=== PATIENT | male | born 1960 | race Caucasian/White ===

== ENCOUNTER 2017-08-14 18:06 | Inpatient (IN) | payer OTHER ==
[2017-08-14 18:55] VITALS: BMI 30.7
--- NOTE | 2017-08-14 21:56 | HP ---
CIWA Score - CIWA Score Nausea/Vomitin (3x today) Muscle Tremors: 1-None Visible, but Imnaha Anxiety: 3 Agitation: 2 Paroxysmal Sweats: 1-Minimal Palms Moist Orientation: 0-Oriented Tacttile Disturbances: 0-None Auditory Disturbances: 0-None Visual Disturbances: 2-Mild Sensitivity Headache: 0-None Present CIWA-Ar Total Score: 12 Admission ROS S - HPI Chief Complaint: withdrawal symptoms Allergies/Adverse Reactions: Allergies Allergy/AdvReac Type Severity Reaction Status Date / Time Fish Containing Products Allergy Severe Rash Verified 03/13/15 16:08 penicillin G Allergy Severe Rash Verified 03/13/15 16:08 History of Present Illness: 57 yo male with hx of nicotine, crack / cocaine, alcohol, xanax, marijuane is here seeking detox. PMHX: Asthma, HTN, DMII ( oral meds), depression, bipolar, insomnia. Denies suicidal / homicidal ideation, reports in 2007 and 2009 attempted suidie by overdose with pscyh medication. Last detox [address] [facility]. Longest period of sobriety 27 months. Exam Limitations: No Limitations - Ebola screening Have you traveled outside of the country in the last 21 days: No Have you had contact with anyone from an Ebola affected area: No Have you been sick,other than usual withdrawal symptoms: No Do you have a fever: No - Review of Systems Constitutional: Chills, Changes in sleep, Unintentional Wgt. Loss (40 lbs in the 4 months) EENT: reports: Other (missing multiple teeth, uses dentures) Respiratory: reports: No Symptoms reported Cardiac: reports: No Symptoms Reported GI: reports: Diarrhea, Nausea, Poor Fluid Intake, Vomiting : reports: No Symptoms Reported Musculoskeletal: reports: No Symptoms Reported Integumentary: reports: No Symptoms Reported Neuro: reports: Headache, Weakness Endocrine: reports: No Symptoms Reported Hematology: reports: No Symptoms Reported Psychiatric: reports: Orientated x3, Anxious Other Systems: Reviewed and Negative Patient History - Patient Medical History Hx Anemia: No Hx Asthma: Yes Hx Chronic Obstructive Pulmonary Disease (COPD): No Hx Cancer: No Hx Cardiac Disorders: No Hx Congestive Heart Failure: No Hx Hypertension: Yes (on meds ) Hx Hypercholesterolemia: No Hx Pacemaker: No HX Cerebrovascular Accident: No Hx Seizures: No Hx Dementia: No Hx Diabetes: Yes (on meds ) Hx Gastrointestinal Disorders: No Hx Liver Disease: No Hx Genitourinary Disorders: No Hx Sexually Transmitted Disorders: No Hx Renal Disease (ESRD): No Hx Thyroid Disease: No Hx Human Immunodeficiency Virus (HIV): No (last tested 4 months, negative ) Hx Hepatitis C: No Hx Depression: Yes Hx Suicide Attempt: No Hx Bipolar Disorder: Yes Hx Schizophrenia: No - Patient Surgical History Past Surgical History: Yes Hx Neurologic Surgery: No Hx Cataract Extraction: No Hx Cardiac Surgery: No Hx Lung Surgery: No Hx Breast Surgery: No Hx Breast Biopsy: No Hx Abdominal Surgery: Yes (hernia repair 2016) Hx Appendectomy: No Hx Cholecystectomy: No Hx Genitourinary Surgery: No Hx Section: No Hx Orthopedic Surgery: No Anesthesia Reaction: No - PPD History Previous Implant?: Yes Documented Results: Negative w/proof Date: 03/15/15 PPD to be Administered?: Yes - Reproductive History Patient is a Female of Child Bearing Age (11 -55 yrs old): No - Smoking Cessation Smoking history: Current every day smoker Have you smoked in the past 12 months: Yes Aproximately how many cigarettes per day: 5 Cigars Per Day: 0 Hx Chewing Tobacco Use: No Initiated information on smoking cessation: Yes 'Breaking Loose' booklet given: 08/14/17 - Substance & Tx. History Hx Alcohol Use: Yes Hx Substance Use: Yes Substance Use Type: Alcohol, Cocaine, Tranquilizers Hx Substance Use Treatment: Yes (ACI three months ago ) - Substances Abused Alcohol Route: Oral Frequency: Daily Amount used: 2 - 3 pints vodka Age of first use: 13 Date of Last Use: 08/14/17 Alprazolam (Xanax) Route: Oral Frequency: 3-6 times per week Amount used: $60 Age of first use: 27 Date of Last Use: 08/11/17 Crack Route: Smoking Frequency: 3-6 times per week Amount used: $20 Age of first use: 27 Date of Last Use: 08/12/17 Marijuana/Hashish Route: Smoking Frequency: Daily Amount used: $10 Age of first use: 13 Date of Last Use: 08/14/17 Family Disease History - Family Disease History Family Disease History: CA: Father (ADDICTED TO ETOH AND FROM [place]. OF THE KIDNEY), Other: Father Admission Physical Exam BHS - Vital Signs Vital Signs: Vital Signs - 24 hr 08/14/17 18:51 Temperature 96.5 F L Pulse Rate 88 Respiratory 18 Rate Blood Pressure 138/81 - Physical General Appearance: Yes: Disheveled, Alcohol on Breath, Obese, Sweating, Anxious HEENTM: Yes: EOMI, Hearing grossly Normal, Normal ENT Inspection, Normocephalic , Normal Voice, THE[place], Pharynx Normal, Tm's normal, Other (poor denation) Respiratory: Yes: Chest Non-Tender, Lungs Clear, Normal Breath Sounds, No Respiratory Distress, No Accessory Muscle Use Neck: Yes: No masses,lesions,Nodules, Trachea in good position Breast: Yes: Breast Exam Deferred Cardiology: Yes: Regular Rhythm, Regular Rate Abdominal: Yes: Normal Bowel Sounds, Non Tender, Soft, Protuberent Genitourinary: Yes: Within Normal Limits Back: Yes: Normal Inspection Musculoskeletal: Yes: full range of Motion, Gait Steady, Pelvis Stable, Back pain, Other (right knee pain) Extremities: Yes: Normal Capillary Refill Neurological: Yes: center specialists II-XII NML intact, Fully Oriented, Alert, Motor Strength 5/5, Depressed Affect Integumentary: Yes: Normal Color, Warm, Moist Lymphatic: Yes: Within Normal Limits - Diagnostic (1) Hypertension Current Visit: Yes Status: Acute (2) Diabetes mellitus type 2 in obese Current Visit: Yes Status: Chronic (3) Cannabis dependence Current Visit: Yes Status: Active (4) Cocaine dependence Current Visit: Yes Status: Active (5) Alcohol dependence with withdrawal, uncomplicated Current Visit: Yes Status: Acute (6) Asthma Current Visit: Yes Status: Chronic Qualifiers: Asthma severity: mild intermittent Asthma complication type: uncomplicated Qualified Code(s): J45.20 - Mild intermittent asthma, uncomplicated (7) Nicotine dependence, uncomplicated Current Visit: Yes Status: Acute Qualifiers: Nicotine product type: cigarettes Qualified Code(s): F17.210 - Nicotine dependence, cigarettes, uncomplicated (8) Nausea & vomiting Current Visit: Yes Status: Acute Qualifiers: Vomiting type: unspecified Vomiting Intractability: unspecified Qualified Code(s): R11.2 - Nausea with vomiting, unspecified Cleared for Admission BHS - Detox or Rehab [facility] Level of Care: Medically Managed Detox Regimen/Protocol: Librium S Breath Alcohol Content Breath Alcohol Content: 0.152 Urine Drug Screen - Results Drug Screen Negative: No Urine Drug Screen Results: THC-Marijuana, DK-Cocaine, BZO-Benzodiazepines
[2017-08-14] MEDS ORDERED: MELATONIN 5 MG TABLETS PO PRN (22:00)
[2017-08-14] MEDS ORDERED: LOPERAMIDE HCL 2 MG CAPSULE PO PRN (22:04)
[2017-08-14] MEDS ORDERED: P-EPHED 60MG/TRIPROLIDI 2.5MG TABLET PO PRN (22:04)
[2017-08-14] MEDS ORDERED: MAGNESIUM HYDROX 2400MG/30ML ORAL SUSPENSION 30 ML CUP PO PRN (22:04)
[2017-08-14] MEDS ORDERED: hydrOXYzine PAMOATE 50 MG CAPSULE (FP) PO PRN (22:04)
[2017-08-14] MEDS ORDERED: guaiFENesin/D-METHORPHAN HB 10 ML UNIT-DOSE CUPS PO PRN (22:04)
[2017-08-14] MEDS ORDERED: MAGNESIUM CITRATE 300 ML BOTTLE PO PRN (22:04)
[2017-08-14] MEDS ORDERED: NICOTINE POLACRILEX 2 MG GUM BUC PRN (22:04)
[2017-08-14] MEDS ORDERED: IBUPROFEN 400 MG TABLET (FP) PO PRN (22:04)
[2017-08-14] MEDS ORDERED: MENTHOL/PHENOL 1 EACH UD MM PRN (22:04)
[2017-08-14] MEDS ORDERED: chlordiazePOXIDE HCL 25 MG CAPSULE PO ONE (22:04)
[2017-08-14] MEDS ORDERED: ACETAMINOPHEN 325 MG TABLET (FP) PO PRN (22:04)
[2017-08-14] MEDS ORDERED: MAG HYDROX/AL HYDROX/SIMETH 30 ML UNIT-DOSE CUP PO PRN (22:04)
[2017-08-14] MEDS ORDERED: ALBUTEROL SO4 18 GM HFA INHALER IH PRN (22:06)
[2017-08-14] MEDS ORDERED: ALBUTEROL SO4 0.083% IH SOL 2.5 MG/3 ML VIAL.NEB. NEB PRN (22:13)
[2017-08-14] MEDS ORDERED: chlordiazePOXIDE HCL 25 MG CAPSULE PO PRN (22:19)
[2017-08-14] MEDS ORDERED: ONDANSETRON *ODT* 4 MG TABLET SL PRN (22:22)
[2017-08-15] MEDS: chlordiazePOXIDE HCL 25 MG CAPSULE PO SCH ×5 (01:04→22:33)
[2017-08-15 01:56] LABS: URINE APPEARANCE CLEAR; URINE BILIRUBIN NEGATIVE (<2.0 mg/dL); URINE BLOOD NEGATIVE (NEGATIVE); URINE COLOR YELLOW; URINE GLUCOSE (UA) NEGATIVE (NEGATIVE); URINE KETONE NEGATIVE (NEGATIVE); URINE LEUK ESTERASE NEGATIVE (NEGATIVE); URINE NITRITE NEGATIVE (NEGATIVE); URINE PROTEIN NEGATIVE (NEGATIVE); URINE UROBILINOGEN NEGATIVE mg/dL (0.2-1.0)
[2017-08-15] MEDS: metFORMIN HCL 500 MG TABLET (FP) PO SCH ×2 (07:54→17:09)
[2017-08-15 10:09] LABS: HEMOGLOBIN 13.2 GM/dL (11.7-16.9); MCH 29.7 pg (25.7-33.7); MEAN CELL VOLUME 90.1 fl (80-96); MEAN PLT VOLUME 8.5 fl (7.5-11.1); PLATELET COUNT 252 K/MM3 (134-434); RBC 4.44 M/mm3 (4.00-5.60); RDW 16.7 % (11.9-15.9); WHITE BLOOD COUNT 7.7 K/mm3 (4.0-10.0)
[2017-08-15 10:24] LABS: ALBUMIN 3.3 g/dl (3.4-5.0); ANION GAP 8 (8-16); BILIRUBIN,TOTAL 0.5 mg/dL (0.2-1.0); BLOOD UREA NITROGEN 12 mg/dL (7-18); CALCIUM 8.4 mg/dL (8.5-10.1); CHLORIDE 101 mmol/L (98-107); CO2 32 mmol/L (21-32); CREATININE 0.7 mg/dL (0.7-1.3); GLUCOSE,RANDOM 113 mg/dL (74-106); POTASSIUM 3.5 mmol/L (3.5-5.1); SGOT/AST 25 U/L (15-37); SGPT/ALT 40 U/L (12-78); SODIUM 141 mmol/L (136-145); TOT PROT 6.6 g/dl (6.4-8.2)
[2017-08-15 10:25] LABS: ALK PHOS 81 U/L (45-117)
[2017-08-15] MEDS: NICOTINE 14 MG/24 HOURS TOPICAL PATCH TD SCH (10:32)
[2017-08-15] MEDS: PRENATAL VITAMINS W/ FOLIC ACID TABLET (FP) PO SCH (10:32)
--- NOTE | 2017-08-15 14:20 | PN ---
S CIWA - CIWA Score Nausea/Vomitin Muscle Tremors: 3 Anxiety: 3 Agitation: 0-Normal Activity Paroxysmal Sweats: 3 Orientation: 0-Oriented Tacttile Disturbances: 2-Mild Itch/Numbness/Burn Auditory Disturbances: 0-None Visual Disturbances: 0-None Headache: 3-Moderate CIWA-Ar Total Score: 19 BHS Progress Note (SOAP) Subjective: Interrupted Sleep, Sweating, Tremors, Vomiting, H/A. Objective: PATIENT A & O X 3, OBSERVED AMBULATING ON UNIT. NO ACUTE DISTRESS. 08/15/17 14:18 Vital Signs Temperature 95.9 F L 08/15/17 14:07 Pulse Rate 83 08/15/17 14:07 Respiratory Rate 16 08/15/17 14:07 Blood Pressure 116/67 08/15/17 14:07 O2 Sat by Pulse Oximetry (%) Laboratory Tests 08/14/17 08/14/17 08/15/17 00:00 23:29 05:51 WBC RBC Hgb Hct MCV MCH MCHC RDW Plt Count MPV Sodium Potassium Chloride Carbon Dioxide Anion Gap BUN Creatinine Creat Clearance w eGFR POC Glucometer 105 94 Random Glucose Calcium Total Bilirubin AST ALT Alkaline Phosphatase Total Protein Albumin Urine Color Yellow Urine Appearance Clear Urine pH 6.0 Ur Specific [place] 1.017 Urine Protein Negative Urine Glucose (UA) Negative Urine Ketones Negative Urine Blood Negative Urine Nitrite Negative Urine Bilirubin Negative Urine Urobilinogen Negative Ur Leukocyte Esterase Negative RPR Titer HIV 1&2 Antibody Screen HIV P24 Antigen 08/15/17 08/15/17 08/15/17 08:16 08:30 08:30 WBC 7.7 RBC 4.44 Hgb 13.2 D Hct 40.0 MCV 90.1 MCH 29.7 D MCHC 33.0 RDW 16.7 H D Plt Count 252 D MPV 8.5 D Sodium 141 Potassium 3.5 Chloride 101 Carbon Dioxide 32 Anion Gap 8 BUN 12 D Creatinine 0.7 Creat Clearance w eGFR > 60 POC Glucometer 138 Random Glucose 113 H Calcium 8.4 L Total Bilirubin 0.5 D AST 25 ALT 40 Alkaline Phosphatase 81 D Total Protein 6.6 Albumin 3.3 L Urine Color Urine Appearance Urine pH Ur Specific [place] Urine Protein Urine Glucose (UA) Urine Ketones Urine Blood Urine Nitrite Urine Bilirubin Urine Urobilinogen Ur Leukocyte Esterase RPR Titer HIV 1&2 Antibody Screen HIV P24 Antigen 08/15/17 08/15/17 08:30 08:30 WBC RBC Hgb Hct MCV MCH MCHC RDW Plt Count MPV Sodium Potassium Chloride Carbon Dioxide Anion Gap BUN Creatinine Creat Clearance w eGFR POC Glucometer Random Glucose Calcium Total Bilirubin AST ALT Alkaline Phosphatase Total Protein Albumin Urine Color Urine Appearance Urine pH Ur Specific [place] Urine Protein Urine Glucose (UA) Urine Ketones Urine Blood Urine Nitrite Urine Bilirubin Urine Urobilinogen Ur Leukocyte Esterase RPR Titer Nonreactive HIV 1&2 Antibody Screen Negative HIV P24 Antigen Negative LABS NOTED. Assessment: 08/15/17 14:19 WITHDRAWAL SYMPTOMS. Plan: CONTINUE DETOX. PRN ZOFRAN SL FOR NAUSEA / VOMITING. INCREASE DAILY PO FLUID INTAKE.
--- NOTE | 2017-08-15 15:02 | CONSULT ---
[facility] Psychiatric Consult - Data Date of interview: 08/15/17 Admission source: [facility] Identifying data: Readmission to [facility] for this 57 y/o male seeking detox treatment on 3 for alcohol,cocaine (crack),marihuan and xanax dependence.Patient is ,a father of two,homeless (group home), unemployed and supported on Public Assistance. Substance Abuse History: Confirmed by patient in this session.Details in current [facility] report as follows : Smoking history: Current every day smoker. Have you smoked in the past 12 months: Yes. Aproximately how many cigarettes per day: 5. Cigars Per Day: 0. Hx Chewing Tobacco Use: No. Initiated information on smoking cessation: Yes. 'Breaking Loose' booklet given: . - Substance & Tx. History. Hx Alcohol Use: Yes. Hx Substance Use: Yes. Substance Use Type: Alcohol, Cocaine, Tranquilizers. Hx Substance Use Treatment : Yes (ACI three months ago ). - Substances Abused. Alcohol. Route: Oral. Frequency: Daily. Amount used: 2 - 3 pints vodka. Age of first use: 13. Date of Last Use: 08/14/17. Alprazolam (Xanax). Route: Oral. Frequency: 3- 6 times per week. Amount used: $60. Age of first use: 27. Date of Last Use: 08/11/17. Crack. Route: Smoking. Frequency: 3-6 times per week. Amount used: $20. Age of first use: 27. Date of Last Use: 08/12/17. Marijuana/ Hashish. Route: Smoking. Frequency: Daily. Amount used: $10. Age of first use: 13. Date of Last Use: 08/14/17 Medical History: Bronchial asthma,hypertension and a history of herniorraphy ( 2016). Psychiatric History: Patient admits to a history of 3-5 psychiatric hospitalizations ([facility]).Diagnosed with Bipolar Disorder.Mr Lugo indicates that he gets his psychiatric outpatient services at the [facility] in [facility].Prescribed seroquel 300 mg/hs + celexa 40 mg/day + trazodone 150 mg/ hs.Patient states that he is adherent to his regimen.Past psychiatric history is also remarkable for four suicide attempts via various means : jumping from a second floor window, overdosing with medications X 2 times and a deliberate attempt (last to date) to d[place] in [place] (2010). Physical/Sexual Abuse/Trauma History: Patient denies. Additional Comment: Urine Drug Screen Results: THC-Marijuana, DK-Cocaine, BZO- Benzodiazepines.Noted. Mental Status Exam - Mental Status Exam Alert and Oriented to: Time, Place, Person Cognitive Function: Good Patient Appearance: Well Groomed Mood: Nervous, Withdrawn Affect: Mood Congruent Patient Behavior: Fatigued, Cooperative Speech Pattern: Clear (bilingual) Voice Loudness: Normal Thought Process: Goal Oriented Thought Disorder: Not Present Hallucinations: Denies Suicidal Ideation: Denies Homicidal Ideation: Denies Insight/Judgement: Poor Sleep: Poorly, Difficulty falling asleep Appetite: Good Muscle strength/Tone: Normal Gait/Station: Normal Psychiatric Findings - Problem List ([place] 1, 2,3) (1) Alcohol dependence with withdrawal, uncomplicated Current Visit: Yes Status: Acute (2) Cannabis dependence Current Visit: Yes Status: Active (3) Cocaine dependence Current Visit: Yes Status: Active (4) Benzodiazepine dependence Current Visit: Yes Status: Acute (5) Nicotine dependence, uncomplicated Current Visit: Yes Status: Acute Qualifiers: Nicotine product type: cigarettes Qualified Code(s): F17.210 - Nicotine dependence, cigarettes, uncomplicated (6) Drug-induced mood disorder Current Visit: Yes Status: Acute (7) Bipolar disorder Current Visit: Yes Status: Chronic Comment: Self-report. (8) Insomnia Current Visit: Yes Status: Acute - Initial Treatment Plan Initial Treatment Plan: Psychoeducation.Sleep hygiene.Detoxification.Medications : seroquel 200 mg po hs + trazodone 100 mg po hs + celexa 20 mg po daily.Side effects/benefits of each drug are discussed with the patient.Mr Lugo agrees to follow this careplan.Observation.
--- NOTE | 2017-08-15 16:57 | EKG ---
Test Reason : Blood Pressure : / mmHG Vent. Rate : 079 BPM Atrial Rate : 079 BPM P-R Int : 130 ms QRS Dur : 092 ms QT Int : 368 ms P-R-T Axes : 063 050 063 degrees QTc Int : 421 ms NORMAL SINUS RHYTHM NORMAL ECG NO PREVIOUS ECGS AVAILABLE Confirmed by MD Halina, Tal ([id number]) on 08/15/2017 4:56:49 PM Referred By: Confirmed By:Tal Meade MD
[2017-08-15] MEDS: THIAMINE HCL 100 MG TABLET (FP) PO SCH (22:33)
[2017-08-15] MEDS: QUEtiapine FUMARATE 200 MG TABLET PO SCH (22:34)
[2017-08-15] MEDS: traZODone HCL 50 MG TABLET (FP) PO SCH (22:34)
[2017-08-16] MEDS: chlordiazePOXIDE HCL 25 MG CAPSULE PO SCH ×3 (05:16→18:22)
[2017-08-16] MEDS: metFORMIN HCL 500 MG TABLET (FP) PO SCH ×2 (08:18→16:45)
[2017-08-16] MEDS: NICOTINE 14 MG/24 HOURS TOPICAL PATCH TD SCH (10:35)
[2017-08-16] MEDS: CITALOPRAM HYDROBROMIDE 20 MG TABLET (FP) PO SCH (10:35)
[2017-08-16] MEDS: PRENATAL VITAMINS W/ FOLIC ACID TABLET (FP) PO SCH (10:35)
--- NOTE | 2017-08-16 11:55 | PN ---
[facility] CIWA - CIWA Score Nausea/Vomitin-No Nausea/No Vomiting Muscle Tremors: 3 Anxiety: 4-Mod. Anxious/Guarded Agitation: 2 Paroxysmal Sweats: No Perspiration Orientation: 0-Oriented Tacttile Disturbances: 2-Mild Itch/Numbness/Burn Auditory Disturbances: 0-None Visual Disturbances: 3-Moderate Sensitivity Headache: 0-None Present CIWA-Ar Total Score: 14 BHS Progress Note (SOAP) Subjective: Constipation, Tremors, Interrupted Sleep, Fatigue, Sweating. Patient reports small wounds on bilateral lower legs, that occurred because he was scratching affected areas because areas felt itchy. Objective: PATIENT A & O X 3. NO ACUTE DISTRESS. SEVERAL SMALL HEALING/SCABBING WOUNDS NOTED IN BILATERAL LOWER LEGS. NO SWELLING , DISCHARGE, BLEEDING, OR UNUSUAL DISCHARGE NOTED AT AFFECTED SITES. 08/16/17 11:52 Vital Signs Temperature 96.9 F L 08/16/17 09:09 Pulse Rate 74 08/16/17 09:09 Respiratory Rate 18 08/16/17 09:09 Blood Pressure 93/55 08/16/17 09:09 O2 Sat by Pulse Oximetry (%) Laboratory Tests 08/14/17 08/14/17 08/15/17 00:00 23:29 05:51 WBC RBC Hgb Hct MCV MCH MCHC RDW Plt Count MPV Sodium Potassium Chloride Carbon Dioxide Anion Gap BUN Creatinine Creat Clearance w eGFR POC Glucometer 105 94 Random Glucose Calcium Total Bilirubin AST ALT Alkaline Phosphatase Total Protein Albumin Urine Color Yellow Urine Appearance Clear Urine pH 6.0 Ur Specific [place] 1.017 Urine Protein Negative Urine Glucose (UA) Negative Urine Ketones Negative Urine Blood Negative Urine Nitrite Negative Urine Bilirubin Negative Urine Urobilinogen Negative Ur Leukocyte Esterase Negative RPR Titer HIV 1&2 Antibody Screen HIV P24 Antigen 08/15/17 08/15/17 08/15/17 08:16 08:30 08:30 WBC 7.7 RBC 4.44 Hgb 13.2 D Hct 40.0 MCV 90.1 MCH 29.7 D MCHC 33.0 RDW 16.7 H D Plt Count 252 D MPV 8.5 D Sodium 141 Potassium 3.5 Chloride 101 Carbon Dioxide 32 Anion Gap 8 BUN 12 D Creatinine 0.7 Creat Clearance w eGFR > 60 POC Glucometer 138 Random Glucose 113 H Calcium 8.4 L Total Bilirubin 0.5 D AST 25 ALT 40 Alkaline Phosphatase 81 D Total Protein 6.6 Albumin 3.3 L Urine Color Urine Appearance Urine pH Ur Specific [place] Urine Protein Urine Glucose (UA) Urine Ketones Urine Blood Urine Nitrite Urine Bilirubin Urine Urobilinogen Ur Leukocyte Esterase RPR Titer HIV 1&2 Antibody Screen HIV P24 Antigen 08/15/17 08/15/17 08/16/17 08:30 08:30 05:15 WBC RBC Hgb Hct MCV MCH MCHC RDW Plt Count MPV Sodium Potassium Chloride Carbon Dioxide Anion Gap BUN Creatinine Creat Clearance w eGFR POC Glucometer 101 Random Glucose Calcium Total Bilirubin AST ALT Alkaline Phosphatase Total Protein Albumin Urine Color Urine Appearance Urine pH Ur Specific [place] Urine Protein Urine Glucose (UA) Urine Ketones Urine Blood Urine Nitrite Urine Bilirubin Urine Urobilinogen Ur Leukocyte Esterase RPR Titer Nonreactive HIV 1&2 Antibody Screen Negative HIV P24 Antigen Negative LABS NOTED. 08/16/17 11:55 Assessment: 08/16/17 11:52 WITHDRAWAL SYMPTOMS. Plan: CONTINUE DETOX. BACITRACIN FOR WOUNDS ON BILATERAL LEGS. INCREASE DAILY NPO FLUID INTAKE.
[2017-08-16] MEDS: BACITRACIN 0.9 GM PACKET TP SCH ×2 (16:23→22:28)
[2017-08-16] MEDS: THIAMINE HCL 100 MG TABLET (FP) PO SCH (22:28)
[2017-08-16] MEDS: chlordiazePOXIDE 5 MG CAPSULE PO SCH (22:29)
[2017-08-16] MEDS: traZODone HCL 50 MG TABLET (FP) PO SCH (22:29)
[2017-08-16] MEDS: QUEtiapine FUMARATE 200 MG TABLET PO SCH (22:29)
[2017-08-17] MEDS: chlordiazePOXIDE 5 MG CAPSULE PO SCH (05:09)
[2017-08-17] MEDS: metFORMIN HCL 500 MG TABLET (FP) PO SCH (08:12)
[2017-08-17] MEDS ORDERED: chlordiazePOXIDE HCL 10 MG CAPSULE PO SCH ×2 (09:42→23:00)
[2017-08-17] MEDS: PRENATAL VITAMINS W/ FOLIC ACID TABLET (FP) PO SCH (10:34)
[2017-08-17] MEDS: CITALOPRAM HYDROBROMIDE 20 MG TABLET (FP) PO SCH (10:34)
[2017-08-17] MEDS: BACITRACIN 0.9 GM PACKET TP SCH (10:34)
[2017-08-17] MEDS: NICOTINE 14 MG/24 HOURS TOPICAL PATCH TD SCH (10:34)
--- NOTE | 2017-08-17 11:41 | PN ---
BHS Progress Note (SOAP) Subjective: Patient reports mild fatigue but that he feels well overall. Objective: PATIENT A & O X 3, OBSERVED AMBULATING ON UNIT. NO ACUTE DISTRESS. 08/17/17 11:40 Vital Signs Temperature 97.2 F L 08/17/17 06:12 Pulse Rate 76 08/17/17 06:12 Respiratory Rate 18 08/17/17 06:30 Blood Pressure 102/64 08/17/17 06:12 O2 Sat by Pulse Oximetry (%) Laboratory Tests 08/14/17 08/14/17 08/15/17 00:00 23:29 05:51 WBC RBC Hgb Hct MCV MCH MCHC RDW Plt Count MPV Sodium Potassium Chloride Carbon Dioxide Anion Gap BUN Creatinine Creat Clearance w eGFR POC Glucometer 105 94 Random Glucose Calcium Total Bilirubin AST ALT Alkaline Phosphatase Total Protein Albumin Urine Color Yellow Urine Appearance Clear Urine pH 6.[address] [place] 1.017 Urine Protein Negative Urine Glucose (UA) Negative Urine Ketones Negative Urine Blood Negative Urine Nitrite Negative Urine Bilirubin Negative Urine Urobilinogen Negative Ur Leukocyte Esterase Negative RPR Titer HIV 1&2 Antibody Screen HIV P24 Antigen 08/15/17 08/15/17 08/15/17 08:16 08:30 08:30 WBC 7.7 RBC 4.44 Hgb 13.2 D Hct 40.0 MCV 90.1 MCH 29.7 D MCHC 33.0 RDW 16.7 H D Plt Count 252 D MPV 8.5 D Sodium 141 Potassium 3.5 Chloride 101 Carbon Dioxide 32 Anion Gap 8 BUN 12 D Creatinine 0.7 Creat Clearance w eGFR > 60 POC Glucometer 138 Random Glucose 113 H Calcium 8.4 L Total Bilirubin 0.5 D AST 25 ALT 40 Alkaline Phosphatase 81 D Total Protein 6.6 Albumin 3.3 L Urine Color Urine Appearance Urine pH Ur Specific [place] Urine Protein Urine Glucose (UA) Urine Ketones Urine Blood Urine Nitrite Urine Bilirubin Urine Urobilinogen Ur Leukocyte Esterase RPR Titer HIV 1&2 Antibody Screen HIV P24 Antigen 08/15/17 08/15/17 08/16/17 08:30 08:30 05:15 WBC RBC Hgb Hct MCV MCH MCHC RDW Plt Count MPV Sodium Potassium Chloride Carbon Dioxide Anion Gap BUN Creatinine Creat Clearance w eGFR POC Glucometer 101 Random Glucose Calcium Total Bilirubin AST ALT Alkaline Phosphatase Total Protein Albumin Urine Color Urine Appearance Urine pH Ur Specific Gate Urine Protein Urine Glucose (UA) Urine Ketones Urine Blood Urine Nitrite Urine Bilirubin Urine Urobilinogen Ur Leukocyte Esterase RPR Titer Nonreactive HIV 1&2 Antibody Screen Negative HIV P24 Antigen Negative 08/16/17 08/17/17 18:20 05:08 WBC RBC Hgb Hct MCV MCH MCHC RDW Plt Count MPV Sodium Potassium Chloride Carbon Dioxide Anion Gap BUN Creatinine Creat Clearance w eGFR POC Glucometer 176 136 Random Glucose Calcium Total Bilirubin AST ALT Alkaline Phosphatase Total Protein Albumin Urine Color Urine Appearance Urine pH Ur Specific Gate Urine Protein Urine Glucose (UA) Urine Ketones Urine Blood Urine Nitrite Urine Bilirubin Urine Urobilinogen Ur Leukocyte Esterase RPR Titer HIV 1&2 Antibody Screen HIV P24 Antigen LABS NOTED. Assessment: 08/17/17 11:40 COMPLETION OF DETOX REGIMEN. Plan: PATIENT SCHEDULED FOR DISCHARGE FROM DETOX UNIT TODAY. [facility]
--- NOTE | 2017-08-17 11:46 | DS ---
[facility] Detox Discharge Summary Admission Date: 08/14/17 Discharge Date: 08/17/17 - History Present History: Alcohol Dependence, Cannabis Dependence, Cocaine Dependence, Sedative Dependence Additional Comments: PATIENT REPORTS MILD FATIGUE AND NAUSEA, HOWEVER, THAT HE FEELS WELL OVERALL AT TIME OF DISCHARGE FROM DETOX UNIT. BED IS CURRENTLY AVAILABLE AT [facility], PATIENT SCHEDULED TO GO ON TO [facility] ([email or web address]) FOR AFTERCARE. PATIENT WAS DISCHARGE FROM DETOX UNIT IN STABLE MEDICAL CONDITION. Pertinent Past History: Asthma HTN, Type II DM, Depression, Bipolar Disorder, Insomnia, Nausea / Vomiting, Nicotine Dependence. - Physical Exam Results Vital Signs: Vital Signs Temperature 97.2 F L 08/17/17 06:12 Pulse Rate 76 08/17/17 06:12 Respiratory Rate 18 08/17/17 06:30 Blood Pressure 102/64 08/17/17 06:12 O2 Sat by Pulse Oximetry (%) Pertinent Admission Physical Exam Findings: WITHDRAWAL SYMPTOMS. Laboratory Tests 08/14/17 08/14/17 08/15/17 00:00 23:29 05:51 WBC RBC Hgb Hct MCV MCH MCHC RDW Plt Count MPV Sodium Potassium Chloride Carbon Dioxide Anion Gap BUN Creatinine Creat Clearance w eGFR POC Glucometer 105 94 Random Glucose Calcium Total Bilirubin AST ALT Alkaline Phosphatase Total Protein Albumin Urine Color Yellow Urine Appearance Clear Urine pH 6.0 Ur Specific [place] 1.017 Urine Protein Negative Urine Glucose (UA) Negative Urine Ketones Negative Urine Blood Negative Urine Nitrite Negative Urine Bilirubin Negative Urine Urobilinogen Negative Ur Leukocyte Esterase Negative RPR Titer HIV 1&2 Antibody Screen HIV P24 Antigen 08/15/17 08/15/17 08/15/17 08:16 08:30 08:30 WBC 7.7 RBC 4.44 Hgb 13.2 D Hct 40.0 MCV 90.1 MCH 29.7 D MCHC 33.0 RDW 16.7 H D Plt Count 252 D MPV 8.5 D Sodium 141 Potassium 3.5 Chloride 101 Carbon Dioxide 32 Anion Gap 8 BUN 12 D Creatinine 0.7 Creat Clearance w eGFR > 60 POC Glucometer 138 Random Glucose 113 H Calcium 8.4 L Total Bilirubin 0.5 D AST 25 ALT 40 Alkaline Phosphatase 81 D Total Protein 6.6 Albumin 3.3 L Urine Color Urine Appearance Urine pH Ur Specific [place] Urine Protein Urine Glucose (UA) Urine Ketones Urine Blood Urine Nitrite Urine Bilirubin Urine Urobilinogen Ur Leukocyte Esterase RPR Titer HIV 1&2 Antibody Screen HIV P24 Antigen 08/15/17 08/15/17 08/16/17 08:30 08:30 05:15 WBC RBC Hgb Hct MCV MCH MCHC RDW Plt Count MPV Sodium Potassium Chloride Carbon Dioxide Anion Gap BUN Creatinine Creat Clearance w eGFR POC Glucometer 101 Random Glucose Calcium Total Bilirubin AST ALT Alkaline Phosphatase Total Protein Albumin Urine Color Urine Appearance Urine pH Ur Specific [place] Urine Protein Urine Glucose (UA) Urine Ketones Urine Blood Urine Nitrite Urine Bilirubin Urine Urobilinogen Ur Leukocyte Esterase RPR Titer Nonreactive HIV 1&2 Antibody Screen Negative HIV P24 Antigen Negative 08/16/17 08/17/17 18:20 05:08 WBC RBC Hgb Hct MCV MCH MCHC RDW Plt Count MPV Sodium Potassium Chloride Carbon Dioxide Anion Gap BUN Creatinine Creat Clearance w eGFR POC Glucometer 176 136 Random Glucose Calcium Total Bilirubin AST ALT Alkaline Phosphatase Total Protein Albumin Urine Color Urine Appearance Urine pH Ur Specific [place] Urine Protein Urine Glucose (UA) Urine Ketones Urine Blood Urine Nitrite Urine Bilirubin Urine Urobilinogen Ur Leukocyte Esterase RPR Titer HIV 1&2 Antibody Screen HIV P24 Antigen LABS NOTED. - Treatment Hospital Course: Detox Protocol Followed, Detoxed Safely, Responded well, Discharged Condition Good, Rehab Referral Accepted Patient has Accepted a Rehab Referral to: [facility] ([place] . - Medication Discharge Medications: Ambulatory Orders Albuterol Sulfate Inhaler - [Ventolin Hfa Inhaler -] 2 inh PO Q4H PRN 03/13/15 Metformin HCl 500 mg PO BID 08/14/17 Quetiapine Fumarate [Seroquel -] 300 mg PO HS 08/15/17 traZODone HCL [Desyrel -] 150 mg PO HS 08/15/17 - Diagnosis (1) Cannabis dependence Current Visit: Yes Status: Active (2) Cocaine dependence Current Visit: Yes Status: Active (3) Alcohol dependence with withdrawal, uncomplicated Current Visit: Yes Status: Acute (4) Hypertension Current Visit: Yes Status: Acute Qualifiers: Hypertension type: unspecified Qualified Code(s): I10 - Essential (primary ) hypertension (5) Nicotine dependence, uncomplicated Current Visit: Yes Status: Acute Qualifiers: Nicotine product type: cigarettes Qualified Code(s): F17.210 - Nicotine dependence, cigarettes, uncomplicated (6) Asthma Current Visit: Yes Status: Chronic Qualifiers: Asthma severity: mild Asthma persistence: intermittent Asthma complication type: uncomplicated Qualified Code(s): J45.20 - Mild intermittent asthma, uncomplicated (7) Diabetes mellitus type 2 in obese Current Visit: Yes Status: Chronic (8) Nausea & vomiting Current Visit: Yes Status: Acute Qualifiers: Vomiting type: unspecified Vomiting Intractability: unspecified Qualified Code(s): R11.2 - Nausea with vomiting, unspecified (9) Benzodiazepine dependence Current Visit: Yes Status: Acute (10) Drug-induced mood disorder Current Visit: Yes Status: Acute (11) Insomnia Current Visit: Yes Status: Acute Qualifiers: Insomnia type: unspecified Qualified Code(s): G47.00 - Insomnia, unspecified (12) Bipolar disorder Current Visit: Yes Status: Chronic Qualifiers: Active/Remission status: remission status unspecified Qualified Code(s): F31.9 - Bipolar disorder, unspecified - AMA Did Patient Leave Against Medical Advice: No
[2017-08-17 13:18] VITALS: BP 110/70; PULSE 81; TEMP 96.4
== END 2017-08-17 12:30 | disposition other institution (70) | DRG 774 ==
LOC: YASAS 18:06 → Y3N 22:13
PROVIDERS: ADMIT Internal Medicine; ATTEND Internal Medicine
PROC: HZ2ZZZZ Detoxification Services for Substance Abuse Treatment (ICD-10-PCS; principal; 2017-08-14)
DX: F13.230 Sedative, hypnotic or anxiolytic dependence with withdrawal, uncomplicated (principal); F10.230 Alcohol dependence with withdrawal, uncomplicated; F14.20 Cocaine dependence, uncomplicated; F12.20 Cannabis dependence, uncomplicated; F17.210 Nicotine dependence, cigarettes, uncomplicated; F31.9 Bipolar disorder, unspecified; F19.24 Other psychoactive substance dependence with psychoactive substance-induced mood disorder; I10 Essential (primary) hypertension; E11.9 Type 2 diabetes mellitus without complications; Z79.84 Long term (current) use of oral hypoglycemic drugs; J45.909 Unspecified asthma, uncomplicated; G47.00 Insomnia, unspecified; R11.2 Nausea with vomiting, unspecified
CPT/HCPCS: 36415; 80053; 81003; 82962; 85027; 86593; 87389; 93005; 93010; Q0162

== ENCOUNTER 2017-08-17 12:53 | Inpatient (IN) | payer OTHER ==
--- NOTE | 2017-08-17 11:58 | HP ---
[facility] Rehab Assess/Revision - Admission History Admitted to Rehab from: [facility] Date of Admission to Rehab: 08/17/2017. - Vital signs Vital Signs: NOTED; STABLE. - Findings Detox History & Physical reviewed: Yes Concur with findings: Yes Comments/Additional Findings: PATIENT'S MEDICAL / MEDICATION HISTORY REVIEWED PRIOR TO DISCHARGE FROM DETOX UNIT. PATIENT WAS DISCHARGED FROM DETOX UNIT TO BE TAKEN OVER TO REHAB UNIT IN STABLE MEDICAL CONDITION. Inpatient Rehab Admission - Initial Determination Are CD services needed?: Yes Free of communicable disease: Yes Not in need of hospitalization: Yes - Rehab Admission Criteria Previous failed treatment: Yes Comorbidities: Yes Patient is meeting Inpatient Rehab admission criteria:: Yes
[~2017-08-17 12:53] MED LIST: ACETAMINOPHEN 325 MG TABLET (FP) PO PRN; ALBUTEROL SO4 2.5/IPRATROPIUM 0.5 INH SOL 3 ML VIAL.NEB. NEB PRN; IBUPROFEN 400 MG TABLET (FP) PO PRN; LOPERAMIDE HCL 2 MG CAPSULE PO PRN; MAG HYDROX/AL HYDROX/SIMETH 30 ML UNIT-DOSE CUP PO PRN; MAGNESIUM CITRATE 300 ML BOTTLE PO PRN; MAGNESIUM HYDROX 2400MG/30ML ORAL SUSPENSION 30 ML CUP PO PRN; MENTHOL/PHENOL 1 EACH UD MM PRN; ONDANSETRON *ODT* 4 MG TABLET SL PRN; P-EPHED 60MG/TRIPROLIDI 2.5MG TABLET PO PRN; TRIMETHOBENZAMIDE HCL 200MG/2ML INJ IM PRN; guaiFENesin/D-METHORPHAN HB 10 ML UNIT-DOSE CUPS PO PRN
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
[2017-08-17] MEDS: metFORMIN HCL 500 MG TABLET (FP) PO SCH (16:55)
[2017-08-17] MEDS: QUEtiapine FUMARATE 300 MG TABLET PO SCH (21:31)
[2017-08-17] MEDS: THIAMINE HCL 100 MG TABLET (FP) PO SCH (21:31)
[2017-08-17] MEDS: traZODone HCL 50 MG TABLET (FP) PO SCH (21:31)
[2017-08-17] MEDS: BACITRACIN 0.9 GM PACKET TP SCH (21:31)
[2017-08-17] MEDS ORDERED: QUEtiapine FUMARATE 200 MG TABLET PO SCH (22:00)
[2017-08-17] MEDS ORDERED: traZODone HCL 100 MG TABLET (FP) PO SCH (22:00)
[2017-08-17] MEDS ORDERED: MELATONIN 5 MG TABLETS PO PRN (22:00)
[2017-08-18] MEDS: metFORMIN HCL 500 MG TABLET (FP) PO SCH ×2 (06:37→16:53)
[2017-08-18] MEDS: NICOTINE 14 MG/24 HOURS TOPICAL PATCH TD SCH (09:26)
[2017-08-18] MEDS: CITALOPRAM HYDROBROMIDE 20 MG TABLET (FP) PO SCH (09:26)
[2017-08-18] MEDS: PRENATAL VITAMINS W/ FOLIC ACID TABLET (FP) PO SCH (09:26)
[2017-08-18] MEDS: BACITRACIN 0.9 GM PACKET TP SCH ×2 (09:27→21:14)
[2017-08-18] MEDS: NICOTINE POLACRILEX 2 MG GUM BUC PRN ×2 (09:32→17:28)
[2017-08-18] MEDS: traZODone HCL 50 MG TABLET (FP) PO SCH (21:14)
[2017-08-18] MEDS: QUEtiapine FUMARATE 300 MG TABLET PO SCH (21:14)
[2017-08-18] MEDS: THIAMINE HCL 100 MG TABLET (FP) PO SCH (21:14)
[2017-08-19] MEDS: metFORMIN HCL 500 MG TABLET (FP) PO SCH ×2 (06:29→16:51)
[2017-08-19] MEDS: BACITRACIN 0.9 GM PACKET TP SCH ×2 (09:36→21:04)
[2017-08-19] MEDS: CITALOPRAM HYDROBROMIDE 20 MG TABLET (FP) PO SCH (09:36)
[2017-08-19] MEDS: NICOTINE 14 MG/24 HOURS TOPICAL PATCH TD SCH (09:36)
[2017-08-19] MEDS: PRENATAL VITAMINS W/ FOLIC ACID TABLET (FP) PO SCH (09:36)
[2017-08-19] MEDS: NICOTINE POLACRILEX 2 MG GUM BUC PRN ×2 (09:37→13:33)
[2017-08-19] MEDS: ALBUTEROL SO4 18 GM HFA INHALER IH PRN (10:57)
[2017-08-19] MEDS: QUEtiapine FUMARATE 300 MG TABLET PO SCH (21:02)
[2017-08-19] MEDS: traZODone HCL 50 MG TABLET (FP) PO SCH (21:02)
[2017-08-19] MEDS: THIAMINE HCL 100 MG TABLET (FP) PO SCH (21:03)
[2017-08-20] MEDS: metFORMIN HCL 500 MG TABLET (FP) PO SCH ×2 (06:03→16:32)
[2017-08-20] MEDS: NICOTINE POLACRILEX 2 MG GUM BUC PRN ×2 (08:17→15:32)
[2017-08-20] MEDS: NICOTINE 14 MG/24 HOURS TOPICAL PATCH TD SCH (09:29)
[2017-08-20] MEDS: CITALOPRAM HYDROBROMIDE 20 MG TABLET (FP) PO SCH (09:29)
[2017-08-20] MEDS: BACITRACIN 0.9 GM PACKET TP SCH ×2 (09:29→21:03)
[2017-08-20] MEDS: PRENATAL VITAMINS W/ FOLIC ACID TABLET (FP) PO SCH (09:29)
[2017-08-20] MEDS: ALBUTEROL SO4 18 GM HFA INHALER IH PRN (09:30)
[2017-08-20] MEDS: THIAMINE HCL 100 MG TABLET (FP) PO SCH (21:02)
[2017-08-20] MEDS: QUEtiapine FUMARATE 300 MG TABLET PO SCH (21:02)
[2017-08-20] MEDS: traZODone HCL 50 MG TABLET (FP) PO SCH (21:02)
[2017-08-21] MEDS: metFORMIN HCL 500 MG TABLET (FP) PO SCH (06:13)
[2017-08-21 06:48] VITALS: BP 118/78; PULSE 78; TEMP 97.8
[2017-08-21] MEDS: NICOTINE POLACRILEX 2 MG GUM BUC PRN (07:57)
[2017-08-21] MEDS: CITALOPRAM HYDROBROMIDE 20 MG TABLET (FP) PO SCH (09:24)
[2017-08-21] MEDS: PRENATAL VITAMINS W/ FOLIC ACID TABLET (FP) PO SCH (09:24)
[2017-08-21] MEDS: NICOTINE 14 MG/24 HOURS TOPICAL PATCH TD SCH (09:24)
[2017-08-21] MEDS: BACITRACIN 0.9 GM PACKET TP SCH (09:25)
--- NOTE | 2017-08-21 11:11 | PN ---
[facility] Progress Note Note: Notified by RN that patient wants to sign out AMA. Spoke with patient and he stated that he wanted to resume his treatment with [facility] and did not want to continue current Rehab services here at [facility]. Risks factors including overdose and reviewed with patient and he verbalized understanding of risk factors. Patient in no physical distress. Despite education provided, patient expressed he is signing out AMA. Supported follow up at [facility] as soon as possible.
--- NOTE | 2017-08-21 14:20 | PN ---
Psychiatric Progress Note Vital Signs: Vital Signs Period Temp Pulse Resp BP Sys/Kumari Pulse Ox Last 24 Hr 97.8 F 78 18-20 118/78 Date of Session: 08/21/17 Chief Complaint:: "leaving AMA" HPI: The patient is 57 year old with history of alcohol, cocaine, cannabis, nicotine dependence comorbid Bipolar I disorder. ROS: Bronchial asthma,hypertension, NIDDM Current Side Effect: No Lab tests ordered: No Lab tests reviewed: Yes Provider note:: Patient reports that he decided to leave treatment AMA, met with the patient to explore reasons for terminating treatment at this time, patient reported that his brother comes from [facility] and he wants to see him, patient was encouraged to focus in his recaovery and stay in treatment, but adamant to leave, denies suicidal and homicildal thoughts, will f/u at [facility], scripts for his current medications provided for 30 days, stable for AMA. Total face to face time:: 15 Mental Status Exam - Mental Status Exam Alert and Oriented to: Time, Place, Person Cognitive Function: Grossly Intact Patient Appearance: Well Groomed Mood: Hopeful Affect: Appropriate, Mood Congruent Patient Behavior: Appropriate, Cooperative Speech Pattern: Clear, Appropriate Voice Loudness: Normal Thought Process: Intact, Goal Oriented Thought Disorder: Not Present Hallucinations: Denies Suicidal Ideation: Denies Homicidal Ideation: Denies Insight/Judgement: Fair Sleep: Fair Appetite: Fair Muscle strength/Tone: Normal Gait/Station: Normal Psychiatric Treatment Plan - Problem List (6) Cigarette nicotine dependence Qualifiers: Substance use status: uncomplicated Qualified Code(s): F17.210 - Nicotine dependence, cigarettes, uncomplicated
== END 2017-08-21 11:45 | disposition left against medical advice (07) | DRG 770 ==
LOC: YASAS 12:53 → Y5N 12:54
PROVIDERS: ADMIT Psychiatry & Neurology Psychiatry; ATTEND Psychiatry & Neurology Psychiatry
PROC: HZ42ZZZ Group Counseling for Substance Abuse Treatment, Cognitive-Behavioral (ICD-10-PCS; principal; 2017-08-17)
DX: F13.20 Sedative, hypnotic or anxiolytic dependence, uncomplicated (principal); F10.20 Alcohol dependence, uncomplicated; F14.20 Cocaine dependence, uncomplicated; F12.20 Cannabis dependence, uncomplicated; F17.210 Nicotine dependence, cigarettes, uncomplicated; F31.89 Other bipolar disorder
CPT/HCPCS: 82962

== ENCOUNTER 2017-12-18 20:43 | Inpatient (IN) | payer OTHER ==
[2017-12-18 23:08] VITALS: BMI 27.2
--- NOTE | 2017-12-19 00:10 | HP ---
CIWA Score - CIWA Score Nausea/Vomitin-Mild Nausea/No Vomiting Muscle Tremors: 4-Moderate,w/Arms Extend Anxiety: 4-Mod. Anxious/Guarded Agitation: 4-Moderately Restless Paroxysmal Sweats: 4-Forehead w/Sweat Beads Orientation: 0-Oriented Tacttile Disturbances: 3-Moderate Itch/Numb/Burn Auditory Disturbances: 0-None Visual Disturbances: 0-None Headache: 2-Mild CIWA-Ar Total Score: [address] [facility] Chief Complaint: C/O WITHDRAWAL SX'S. SEEKING DETOX FOR ALCOHOLISM Allergies/Adverse Reactions: Allergies Allergy/AdvReac Type Severity Reaction Status Date / Time Fish Containing Products Allergy Severe Rash Verified 08/17/17 13:51 penicillin G Allergy Severe Rash Verified 08/17/17 13:51 History of Present Illness: 57 Y.O. MALE WITH POLYSUBSTANCE ABUSE HERE FOR ALCOHOL DETOX. CLIENT IS KNOWN TO THIS PROGRAM. LAST HERE 07/2017. SELF REFERRED. LONGEST CLEAN TIME 5 YEARS. HX /O WITHDRAWAL SEIZURES, SI. PRESENTLY DENIES SI/HI, AVH. Exam Limitations: Other (AMBULATES WITH CANE FOR UNSTEADY GAIT) - Ebola screening Have you traveled outside of the country in the last 21 days: No Have you had contact with anyone from an Ebola affected area: No Have you been sick,other than usual withdrawal symptoms: No Do you have a fever: No - Review of Systems Constitutional: Chills, Loss of Appetite, Night Sweats, Changes in sleep, Unintentional Wgt. Loss EENT: reports: Dental Problems (MISSING TEETH) Respiratory: reports: Shortness of Breath (COPD/ASTHMA) Cardiac: reports: No Symptoms Reported GI: reports: Nausea, Poor Appetite, Poor Fluid Intake : reports: No Symptoms Reported Musculoskeletal: reports: No Symptoms Reported Integumentary: reports: Sweating Neuro: reports: Seizure (WITHDRAWAL SEIZURES) Endocrine: reports: Other (HX/O DM) Hematology: reports: No Symptoms Reported Psychiatric: reports: Anxious, Depressed Other Systems: Reviewed and Negative Patient History - Patient Medical History Hx Anemia: No Hx Asthma: Yes Hx Chronic Obstructive Pulmonary Disease (COPD): Yes Hx Cancer: No Hx Cardiac Disorders: No Hx Congestive Heart Failure: No Hx Hypertension: Yes Hx Hypercholesterolemia: No Hx Pacemaker: No HX Cerebrovascular Accident: No Hx Seizures: No Hx Dementia: No Hx Diabetes: Yes (ON GLUCOPHAGE 500MG P.O B.I.D) Hx Gastrointestinal Disorders: No Hx Liver Disease: No Hx Genitourinary Disorders: No Hx Sexually Transmitted Disorders: No Hx Renal Disease (ESRD): No Hx Thyroid Disease: No Hx Human Immunodeficiency Virus (HIV): No Hx Hepatitis C: No Hx Depression: Yes Hx Suicide Attempt: Yes (x 4 TIMES, LAST EPISODE IN 2010) Hx Bipolar Disorder: Yes Hx Schizophrenia: No Other Medical History: DENIES - Patient Surgical History Past Surgical History: Yes Hx Neurologic Surgery: No Hx Cataract Extraction: No Hx Cardiac Surgery: No Hx Lung Surgery: No Hx Breast Surgery: No Hx Breast Biopsy: No Hx Abdominal Surgery: Yes (hernia repair 2015) Hx Appendectomy: No Hx Cholecystectomy: No Hx Genitourinary Surgery: No Hx Section: No Hx Orthopedic Surgery: No Anesthesia Reaction: No - PPD History Previous Implant?: Yes Documented Results: Negative w/proof Implanted On Prior [facility] Admission?: Yes Date: 08/18/17 Results: 0 mm PPD to be Administered?: No - Smoking Cessation Smoking history: Current every day smoker Have you smoked in the past 12 months: Yes Aproximately how many cigarettes per day: 5 Cigars Per Day: 0 Hx Chewing Tobacco Use: No Initiated information on smoking cessation: Yes 'Breaking Loose' booklet given: 12/19/17 - Substance & Tx. History Hx Alcohol Use: Yes Hx Substance Use: Yes Substance Use Type: Alcohol, Marijuana Hx Substance Use Treatment: Yes ([facility]) - Substances Abused VODKA Route: Oral Frequency: Daily Amount used: 2 PINTS Age of first use: 13 Date of Last Use: 12/18/17 THC Route: Smoking Frequency: 1-2 times per week Amount used: 10 DOLLARS Age of first use: 15 Date of Last Use: 12/17/17 Family Disease History - Family Disease History Family Disease History: CA: Father (ADDICTED TO ETOH AND FROM CA. OF THE KIDNEY), Other: Father Admission Physical Exam [facility] - Vital Signs Vital Signs: Vital Signs - 24 hr 12/18/17 23:04 Temperature 97.4 F L Pulse Rate 98 H Respiratory 20 Rate Blood Pressure 121/64 - Physical General Appearance: Yes: Appropriately Dressed, Alcohol on Breath, Anxious HEENTM: Yes: EOMI, Normocephalic, Normal Voice, [place], Pharynx Normal, Other ( MISSING TEETH/EDENTULOUS) Respiratory: Yes: Chest Non-Tender, Lungs Clear, Normal Breath Sounds, No Respiratory Distress, No Accessory Muscle Use Neck: Yes: No masses,lesions,Nodules, Supple, Trachea in good position Breast: Yes: Breast Exam Deferred Cardiology: Yes: Regular Rhythm, Regular Rate, S1, S2 Abdominal: Yes: Non Tender, Increased Bowel Sounds, Protuberent Genitourinary: Yes: Other (NO C/O) Back: Yes: Normal Inspection Musculoskeletal: Yes: Other (AMBULATES W/ CANE FOR UNSTEADY GAIT) Extremities: Yes: Normal Range of Motion, Non-Tender Neurological: Yes: Fully Oriented, Alert, Motor Strength 5/5 Integumentary: Yes: Warm, Other Lymphatic: Yes: Within Normal Limits - Diagnostic (1) COPD (chronic obstructive pulmonary disease) Current Visit: Yes Status: Chronic Qualifiers: COPD type: unspecified COPD Qualified Code(s): J44.9 - Chronic obstructive pulmonary disease, unspecified (2) Alcohol withdrawal seizure Current Visit: No Status: Chronic Qualifiers: Complication of substance-induced condition: uncomplicated Qualified Code(s ): F10.230 - Alcohol dependence with withdrawal, uncomplicated (3) Cannabis dependence Current Visit: Yes Status: Chronic (4) Alcohol dependence with withdrawal, uncomplicated Current Visit: Yes Status: Chronic (5) Drug-induced mood disorder Current Visit: Yes Status: Suspected (6) Hypertension Current Visit: Yes Status: Chronic Qualifiers: Hypertension type: unspecified Qualified Code(s): I10 - Essential (primary ) hypertension (7) Insomnia Current Visit: Yes Status: Chronic Qualifiers: Insomnia type: unspecified Qualified Code(s): G47.00 - Insomnia, unspecified (8) Nicotine dependence, uncomplicated Current Visit: Yes Status: Chronic Qualifiers: Nicotine product type: cigarettes Qualified Code(s): F17.210 - Nicotine dependence, cigarettes, uncomplicated (9) Asthma Current Visit: Yes Status: Chronic Qualifiers: Asthma severity: mild Asthma persistence: intermittent Asthma complication type: uncomplicated Qualified Code(s): J45.20 - Mild intermittent asthma, uncomplicated (10) Bipolar disorder Current Visit: Yes Status: Chronic Qualifiers: Active/Remission status: remission status unspecified Qualified Code(s): F31.9 - Bipolar disorder, unspecified Comment: Self-report. (11) Diabetes mellitus type 2 in obese Current Visit: Yes Status: Chronic Cleared for Admission [facility] - Detox or Rehab [facility] Level of Care: Medically Managed Detox Regimen/Protocol: Librium Claeared for Rehab Admission: No [facility] Breath Alcohol Content Breath Alcohol Content: 0.003 Urine Drug Screen - Results Drug Screen Negative: No Urine Drug Screen Results: THC-Marijuana
[2017-12-19] MEDS ORDERED: MAGNESIUM CITRATE 300 ML BOTTLE PO PRN (00:14)
[2017-12-19] MEDS ORDERED: MAG HYDROX/AL HYDROX/SIMETH 30 ML UNIT-DOSE CUP PO PRN (00:14)
[2017-12-19] MEDS ORDERED: hydrOXYzine PAMOATE 50 MG CAPSULE (FP) PO PRN (00:14)
[2017-12-19] MEDS ORDERED: ACETAMINOPHEN 325 MG TABLET (FP) PO PRN (00:14)
[2017-12-19] MEDS ORDERED: MENTHOL/PHENOL 1 EACH UD MM PRN (00:14)
[2017-12-19] MEDS ORDERED: MAGNESIUM HYDROX 2400MG/30ML ORAL SUSPENSION 30 ML CUP PO PRN (00:14)
[2017-12-19] MEDS ORDERED: guaiFENesin/D-METHORPHAN HB 10 ML UNIT-DOSE CUPS PO PRN (00:14)
[2017-12-19] MEDS ORDERED: IBUPROFEN 400 MG TABLET (FP) PO PRN (00:14)
[2017-12-19] MEDS ORDERED: LOPERAMIDE HCL 2 MG CAPSULE PO PRN (00:14)
[2017-12-19] MEDS ORDERED: NICOTINE POLACRILEX 2 MG GUM BC PRN (00:14)
[2017-12-19] MEDS ORDERED: P-EPHED 60MG/TRIPROLIDI 2.5MG TABLET PO PRN (00:14)
[2017-12-19] MEDS ORDERED: chlordiazePOXIDE HCL 25 MG CAPSULE PO PRN (00:14)
[2017-12-19] MEDS ORDERED: ALBUTEROL SO4 8 GM HFA INHALER IH PRN (00:16)
[2017-12-19] MEDS: metFORMIN HCL 500 MG TABLET (FP) PO SCH ×2 (06:08→16:57)
[2017-12-19] MEDS: chlordiazePOXIDE HCL 25 MG CAPSULE PO SCH ×4 (06:08→22:21)
[2017-12-19] MEDS ORDERED: metFORMIN HCL 500 MG TABLET (FP) PO SCH (10:00)
[2017-12-19 10:29] LABS: HEMATOCRIT 38.5 % (35.4-49); HEMOGLOBIN 12.9 GM/dL (11.7-16.9); MCH 30.7 pg (25.7-33.7); MCHC 33.5 g/dl (32.0-35.9); MEAN CELL VOLUME 91.7 fl (80-96); MEAN PLT VOLUME 9.2 fl (7.5-11.1); PLATELET COUNT 219 K/MM3 (134-434); RDW 14.8 % (11.9-15.9); WHITE BLOOD COUNT 11.1 K/mm3 (4.0-10.0)
[2017-12-19 10:43] LABS: ALBUMIN 2.9 g/dl (3.4-5.0); ANION GAP 12 (8-16); BLOOD UREA NITROGEN 24 mg/dL (7-18); CALCIUM 8.7 mg/dL (8.5-10.1); CHLORIDE 104 mmol/L (98-107); CO2 25 mmol/L (21-32); GLUCOSE,RANDOM 122 mg/dL (74-106); POTASSIUM 3.4 mmol/L (3.5-5.1); SODIUM 141 mmol/L (136-145)
[2017-12-19 10:47] LABS: ALK PHOS 66 U/L (45-117); BILIRUBIN,TOTAL 0.3 mg/dL (0.2-1.0); CREATININE 0.9 mg/dL (0.7-1.3); SGOT/AST 14 U/L (15-37); SGPT/ALT 32 U/L (12-78)
[2017-12-19] MEDS: NICOTINE 14 MG/24 HOURS TOPICAL PATCH TD SCH (10:48)
[2017-12-19] MEDS: PRENATAL VITAMINS W/ FOLIC ACID TABLET (FP) PO SCH (10:48)
[2017-12-19] MEDS ORDERED: ONDANSETRON *ODT* 4 MG TABLET SL PRN (13:41)
--- NOTE | 2017-12-19 13:41 | PN ---
S CIWA - CIWA Score Nausea/Vomitin Muscle Tremors: 4-Moderate,w/Arms Extend Anxiety: 4-Mod. Anxious/Guarded Agitation: 2 Paroxysmal Sweats: 3 Orientation: 0-Oriented Tacttile Disturbances: 2-Mild Itch/Numbness/Burn Auditory Disturbances: 0-None Visual Disturbances: 0-None Headache: 0-None Present CIWA-Ar Total Score: 18 [facility] Progress Note (SOAP) Subjective: Sweating, Nausea, Tremors, Diarrhea. Objective: PATIENT A & O X 3, OBSERVED AMBULATING ON UNIT. NO ACUTE DISTRESS. 12/19/17 13:42 Vital Signs Temperature 97.6 F 12/19/17 13:39 Pulse Rate 84 12/19/17 13:39 Respiratory Rate 16 12/19/17 13:39 Blood Pressure 108/68 12/19/17 13:39 O2 Sat by Pulse Oximetry (%) Laboratory Tests 12/19/17 12/19/17 12/19/17 06:06 07:30 07:30 WBC 11.1 H RBC 4.20 Hgb 12.9 Hct 38.5 MCV 91.7 MCH 30.7 MCHC 33.5 RDW 14.8 D Plt Count 219 MPV 9.2 Sodium 141 Potassium 3.4 L Chloride 104 Carbon Dioxide 25 D Anion Gap 12 BUN 24 H Creatinine 0.9 Creat Clearance w eGFR > 60 POC Glucometer 97 Random Glucose 122 H Calcium 8.7 Total Bilirubin 0.3 AST 14 L D ALT 32 Alkaline Phosphatase 66 Total Protein 6.0 L Albumin 2.9 L RPR Titer 12/19/17 07:30 WBC RBC Hgb Hct MCV MCH MCHC RDW Plt Count MPV Sodium Potassium Chloride Carbon Dioxide Anion Gap BUN Creatinine Creat Clearance w eGFR POC Glucometer Random Glucose Calcium Total Bilirubin AST ALT Alkaline Phosphatase Total Protein Albumin RPR Titer Nonreactive LABS NOTED. UA RESULTS PENDING. 12/19/17 13:44 Assessment: 12/19/17 13:42 WITHDRAWAL SYMPTOMS. HYPOKALEMIA. 12/19/17 13:44 Plan: CONTINUE DETOX. K-DUR, 20 MEQ PO BID.
[2017-12-19] MEDS ORDERED: POTASSIUM CHLORIDE TABS 20 MEQ TABLET.ER (FP) PO ONE (13:43)
[2017-12-19 14:58] LABS: URINE APPEARANCE CLEAR; URINE BILIRUBIN NEGATIVE (<2.0 mg/dL); URINE COLOR LTYELLOW; URINE GLUCOSE (UA) NEGATIVE (NEGATIVE); URINE KETONE NEGATIVE (NEGATIVE); URINE LEUK ESTERASE NEGATIVE (NEGATIVE); URINE NITRITE NEGATIVE (NEGATIVE); URINE PROTEIN NEGATIVE (NEGATIVE); URINE UROBILINOGEN NEGATIVE mg/dL (0.2-1.0)
[2017-12-19] MEDS ORDERED: predniSONE 20 MG TABLET (UD) PO ONE (16:00)
--- NOTE | 2017-12-19 16:08 | PN ---
[facility] Progress Note Note: PART OF HIS HOME MEDICATIONS, PATIENT HAS A BOTTLE OF PREDNISONE, WHICH HE STATES THAT HE WAS PRESCRIBED ( A TAPER) FOR TREATMENT OF AN ACUTE ASTHMA EXACERBATION STARTING SEVERAL DAYS PRIOR TO ADMISSION TO DETOX. PATIENT REPORTS THAT HE HAD BEEN TAKING THE PREDNISONE CONSISTENTLY AND PRESCRIBED SINCE START OF TAKING IT. HOWEVER, PATIENT MIXED PILLS FROM OTHER MEDICATION INTO BOTTLE THAT CONTAINED PREDNISONE. THEREFORE, UNABLE TO USE PATIENT'S OWN MEDICATION. HOWEVER, BASED UPON START DAYS AND SCHEDULING OF DOSING NOTED ON INSTRUCTIONS ON BOTTLE, PATIENT SCHEDULED TO RECEIVE 10 MG PO X 1 TODAY, THEN TO COMPLETE TAPER TOMORROW WITH 5 MG PO X 1 .DOSE FOR TODAY AND FOR TOMORROW ORDERED. Obdulio PATINO NP.
[2017-12-19] MEDS: ASPIRIN 81 MG CHEWABLE TABLETS PO SCH (16:57)
--- NOTE | 2017-12-19 17:14 | CONSULT ---
[facility] Psychiatric Consult - Data Date of interview: 12/19/17 Admission source: [facility] Identifying data: This is one of multiple admissions to [facility] for this 57 y/ o male seeking detox treatment on for alcohol and marihuana dependence.Patient is ,a father of two,homeless (residing at [facility]),unemployed and supported on Public Assistance. Substance Abuse History: Confirmed by patient in this interview : Smoking history: Current every day smoker. Have you smoked in the past 12 months: Yes. Aproximately how many cigarettes per day: 5. Cigars Per Day: 0. Hx Chewing Tobacco Use: No. Initiated information on smoking cessation: Yes. 'Breaking Loose' booklet given: 12/19/17. - Substance & Tx. History. Hx Alcohol Use: Yes. Hx Substance Use: Yes. Substance Use Type: Alcohol, Marijuana. Hx Substance Use Treatment: Yes ([facility]). - Substances Abused. VODKA. Route: Oral. Frequency: Daily. Amount used: 2 PINTS. Age of first use: 13. Date of Last Use: 12/18/17. THC. Route: Smoking. Frequency: 1-2 times per week. Amount used: 10 DOLLARS. Age of first use: 15. Date of Last Use: 12/17/17 Medical History: Diabetes mellitus,bronchial asthma,hypertension and a history of herniorraphy (2016). Psychiatric History: History of 3-5 psychiatric hospitalizations ([facility]).Last admitted to [facility] in 2017.Diagnosed with Bipolar Disorder.Mr Lugo still gets his psychiatric outpatient services at the [facility] in [facility].Prescribed seroquel 300 mg/hs + celexa 20 mg/day + trazodone 100 mg/ hs.Patient declares that he is adherent to his regimen.History is also remarkable for four suicide attempts : jumping from a second floor window, overdosing with psychotropic medications on two occasions and one attempt to d[place] in [place] ([place]). Physical/Sexual Abuse/Trauma History: Patient denies. Additional Comment: Urine Drug Screen Results: THC-Marijuana.Noted. Mental Status Exam - Mental Status Exam Alert and Oriented to: Time, Place, Person Cognitive Function: Good Patient Appearance: Well Groomed Mood: Nervous, Withdrawn Affect: Mood Congruent, Constricted Patient Behavior: Fatigued, Appropriate, Cooperative Speech Pattern: Clear, Appropriate Voice Loudness: Normal Thought Process: Intact, Goal Oriented Thought Disorder: Not Present Hallucinations: Denies Suicidal Ideation: Denies Homicidal Ideation: Denies Insight/Judgement: Poor Sleep: Poorly, Difficulty falling asleep Appetite: Fair Muscle strength/Tone: Normal Gait/Station: Other (walks with a cane) Psychiatric Findings - Problem List ([place] 1, 2,3) (1) Alcohol dependence with withdrawal, uncomplicated Current Visit: Yes Status: Acute (2) Cannabis dependence Current Visit: Yes Status: Acute (3) Nicotine dependence, uncomplicated Current Visit: Yes Status: Acute Qualifiers: Nicotine product type: cigarettes Qualified Code(s): F17.210 - Nicotine dependence, cigarettes, uncomplicated (4) Bipolar disorder Current Visit: Yes Status: Chronic Qualifiers: Active/Remission status: remission status unspecified Qualified Code(s): F31.9 - Bipolar disorder, unspecified Comment: Self-report. (5) Drug-induced mood disorder Current Visit: Yes Status: Acute (6) Insomnia Current Visit: Yes Status: Acute Qualifiers: Insomnia type: unspecified Qualified Code(s): G47.00 - Insomnia, unspecified - Initial Treatment Plan Initial Treatment Plan: Psychoeducation.Sleep hygiene.Detoxification in progress.Medications : celexa 20 mg po daily + trazodone 100 mg po hs + seroquel 100 mg po hs.Side effects/benefits of each medication are discussed with the patient.Made aware, in particular, of the additional risk for sexual dysfunction,metabolic syndrome,priapism and suicidal ideation.Consent (verbal) : given.Contact made with pharmacist ([phone]) at [facility] located on [address] : last refills for seroquel 300 mg/hs # 30 + celexa 20 mg/day # 30 were picked up on 08/21/17 and trazodone 100 mg/hs as of 11/28/17.Observation.
[2017-12-19] MEDS: POTASSIUM CHLORIDE TABS 20 MEQ TABLET.ER (FP) PO SCH (19:41)
[2017-12-19] MEDS ORDERED: QUEtiapine FUMARATE 100 MG TABLET (FP) PO SCH (22:00)
[2017-12-19] MEDS ORDERED: MELATONIN 5 MG TABLETS PO PRN (22:00)
[2017-12-19] MEDS: DOXYCYCLINE HYCLATE 100 MG TABLET PO SCH (22:21)
[2017-12-19] MEDS: THIAMINE HCL 100 MG TABLET (FP) PO SCH (22:22)
[2017-12-19] MEDS: GABAPENTIN 300 MG CAPSULE (FP) PO SCH (22:22)
[2017-12-19] MEDS: MONTELUKAST NA 10 MG TABLET PO SCH (22:22)
[2017-12-19] MEDS: traZODone HCL 100 MG TABLET (FP) PO SCH (22:24)
[2017-12-19] MEDS: BUDESONIDE/FORMETEROL FUMARATE 160/4.5 mcg INHALER IH SCH (22:25)
[2017-12-20] MEDS: GABAPENTIN 300 MG CAPSULE (FP) PO SCH ×3 (05:47→22:04)
[2017-12-20] MEDS: chlordiazePOXIDE HCL 25 MG CAPSULE PO SCH ×4 (05:47→22:04)
[2017-12-20] MEDS: metFORMIN HCL 500 MG TABLET (FP) PO SCH ×2 (06:50→17:41)
[2017-12-20] MEDS ORDERED: predniSONE 10 MG TABLET (UD) PO ONE (10:00)
[2017-12-20] MEDS: POTASSIUM CHLORIDE TABS 20 MEQ TABLET.ER (FP) PO SCH ×2 (10:41→17:43)
[2017-12-20] MEDS: BUDESONIDE/FORMETEROL FUMARATE 160/4.5 mcg INHALER IH SCH ×2 (10:41→22:05)
[2017-12-20] MEDS: ASPIRIN 81 MG CHEWABLE TABLETS PO SCH (10:41)
[2017-12-20] MEDS: CITALOPRAM HYDROBROMIDE 20 MG TABLET (FP) PO SCH (10:41)
[2017-12-20] MEDS: DOXYCYCLINE HYCLATE 100 MG TABLET PO SCH ×2 (10:41→22:04)
[2017-12-20] MEDS: ATORVASTATIN CA 40 MG TABLET (FP) PO SCH (10:41)
[2017-12-20] MEDS: PRENATAL VITAMINS W/ FOLIC ACID TABLET (FP) PO SCH (10:41)
[2017-12-20] MEDS: LISINOPRIL 10 MG TABLET (FP) PO SCH (10:41)
[2017-12-20] MEDS: NICOTINE 14 MG/24 HOURS TOPICAL PATCH TD SCH (10:41)
--- NOTE | 2017-12-20 13:37 | PN ---
S CIWA - CIWA Score Nausea/Vomitin-No Nausea/No Vomiting Muscle Tremors: 3 Anxiety: 4-Mod. Anxious/Guarded Agitation: 3 Paroxysmal Sweats: 3 Orientation: 0-Oriented Tacttile Disturbances: 2-Mild Itch/Numbness/Burn Auditory Disturbances: 0-None Visual Disturbances: 0-None Headache: 0-None Present CIWA-Ar Total Score: 15 BHS Progress Note (SOAP) Subjective: Sweating, Anxious, Tremors. Objective: PATIENT A & O X 3, OBSERVED AMBULATING ON UNIT WITH ASSISTANCE OF A CANE. NO ACUTE DISTRESS. 12/20/17 13:37 Vital Signs Temperature 96.5 F L 12/20/17 10:08 Pulse Rate 88 12/20/17 10:08 Respiratory Rate 18 12/20/17 10:08 Blood Pressure 128/75 12/20/17 10:08 O2 Sat by Pulse Oximetry (%) Laboratory Tests 12/19/17 12/19/17 12/19/17 06:06 07:30 07:30 WBC 11.1 H RBC 4.20 Hgb 12.9 Hct 38.5 MCV 91.7 MCH 30.7 MCHC 33.5 RDW 14.8 D Plt Count 219 MPV 9.2 Sodium 141 Potassium 3.4 L Chloride 104 Carbon Dioxide 25 D Anion Gap 12 BUN 24 H Creatinine 0.9 Creat Clearance w eGFR > 60 POC Glucometer 97 Random Glucose 122 H Calcium 8.7 Total Bilirubin 0.3 AST 14 L D ALT 32 Alkaline Phosphatase 66 Total Protein 6.0 L Albumin 2.9 L Urine Color Urine Appearance Urine pH Ur Specific [place] Urine Protein Urine Glucose (UA) Urine Ketones Urine Blood Urine Nitrite Urine Bilirubin Urine Urobilinogen Ur Leukocyte Esterase RPR Titer 12/19/17 12/19/17 12/19/17 07:30 11:25 16:18 WBC RBC Hgb Hct MCV MCH MCHC RDW Plt Count MPV Sodium Potassium Chloride Carbon Dioxide Anion Gap BUN Creatinine Creat Clearance w eGFR POC Glucometer 117 Random Glucose Calcium Total Bilirubin AST ALT Alkaline Phosphatase Total Protein Albumin Urine Color Ltyellow Urine Appearance Clear Urine pH 5.0 Ur Specific [place] 1.015 Urine Protein Negative Urine Glucose (UA) Negative Urine Ketones Negative Urine Blood Negative Urine Nitrite Negative Urine Bilirubin Negative Urine Urobilinogen Negative Ur Leukocyte Esterase Negative RPR Titer Nonreactive 12/20/17 05:46 WBC RBC Hgb Hct MCV MCH MCHC RDW Plt Count MPV Sodium Potassium Chloride Carbon Dioxide Anion Gap BUN Creatinine Creat Clearance w eGFR POC Glucometer 94 Random Glucose Calcium Total Bilirubin AST ALT Alkaline Phosphatase Total Protein Albumin Urine Color Urine Appearance Urine pH Ur Specific [place] Urine Protein Urine Glucose (UA) Urine Ketones Urine Blood Urine Nitrite Urine Bilirubin Urine Urobilinogen Ur Leukocyte Esterase RPR Titer LABS NOTED. Assessment: 12/20/17 13:37 WITHDRAWAL SYMPTOMS. HYPOKALEMIA. 12/20/17 13:38 Plan: CONTINUE DETOX. INCREASE DAILY PO FLUID INTAKE. CONTINUE K-DUR.
--- NOTE | 2017-12-20 18:08 | PN ---
[facility] Progress Note Note: Psychiatry Attending's note : Seroquel titrated to 200 mg po hs. Well tolerated.No adverse effects. Steady gait.Normal vitals. Mr Lugo agrees with [facility].
[2017-12-20] MEDS: QUEtiapine FUMARATE 200 MG TABLET PO SCH (22:04)
[2017-12-20] MEDS: traZODone HCL 100 MG TABLET (FP) PO SCH (22:04)
[2017-12-20] MEDS: MONTELUKAST NA 10 MG TABLET PO SCH (22:04)
[2017-12-20] MEDS: THIAMINE HCL 100 MG TABLET (FP) PO SCH (22:42)
[2017-12-21] MEDS: chlordiazePOXIDE 5 MG CAPSULE PO SCH ×4 (05:10→22:03)
[2017-12-21] MEDS: GABAPENTIN 300 MG CAPSULE (FP) PO SCH ×3 (05:10→22:04)
[2017-12-21] MEDS: metFORMIN HCL 500 MG TABLET (FP) PO SCH ×2 (07:46→17:30)
[2017-12-21] MEDS: CITALOPRAM HYDROBROMIDE 20 MG TABLET (FP) PO SCH (11:12)
[2017-12-21] MEDS: POTASSIUM CHLORIDE TABS 20 MEQ TABLET.ER (FP) PO SCH ×2 (11:12→17:35)
[2017-12-21] MEDS: LISINOPRIL 10 MG TABLET (FP) PO SCH (11:12)
[2017-12-21] MEDS: ATORVASTATIN CA 40 MG TABLET (FP) PO SCH (11:12)
[2017-12-21] MEDS: PRENATAL VITAMINS W/ FOLIC ACID TABLET (FP) PO SCH (11:12)
[2017-12-21] MEDS: ASPIRIN 81 MG CHEWABLE TABLETS PO SCH (11:12)
[2017-12-21] MEDS: NICOTINE 14 MG/24 HOURS TOPICAL PATCH TD SCH (11:12)
[2017-12-21] MEDS: DOXYCYCLINE HYCLATE 100 MG TABLET PO SCH ×2 (11:13→22:04)
[2017-12-21] MEDS: BUDESONIDE/FORMETEROL FUMARATE 160/4.5 mcg INHALER IH SCH ×2 (11:13→22:03)
--- NOTE | 2017-12-21 11:23 | PN ---
S Progress Note (SOAP) Subjective: PT C/O DAIRRHEA, ANXIETY, DEPRESSED. PT IS VERY AGITATED,ANGRY,AND IRRITABLE. DIFFICULTY IN COMMUNICATING HIS NEEDS WITHOUT AN OUTBURST. PT WAS IN VERBAL ALTERCATION WITH ROOM MATE IN AT THE PHONE USAGE AREA OUT TO THE HALLWAY.TIMELY STAFF INTERVENTION PREVENTED PATIENT CONTACTS. SECURITY WAS CALLED TO THE FLOOR. WET WASHER MACHINE, RUBBER MOLDER JANEE BOSWELL,NURSE LAURA AND DATABASE MARKETING MANAGER TEAMED THE PATIENT AND ENCOURAGED POSITIVE COMMUNICATION. PT WILL FOLLOW UP WITH PSYCH CONSULT TODAY FOR RE-EVALUATION. PT EXPRESSED INSIGHT TO HIS INABILITY TO CONTROL HIS EMOTIONS/OUTBURSTS. Objective: 12/21/17 11:23 Vital Signs 12/21/17 12/21/17 12/21/17 03:30 06:13 06:30 Temperature 97.2 F L Pulse Rate 64 Respiratory 18 18 18 Rate Blood Pressure 106/66 12/21/17 11:00 Temperature 97.4 F L Pulse Rate 64 Respiratory 20 Rate Blood Pressure 136/82 Laboratory Tests 12/19/17 12/19/17 12/19/17 06:06 07:30 07:30 WBC 11.1 H RBC 4.20 Hgb 12.9 Hct 38.5 MCV 91.7 MCH 30.7 MCHC 33.5 RDW 14.8 D Plt Count 219 MPV 9.2 Sodium 141 Potassium 3.4 L Chloride 104 Carbon Dioxide 25 D Anion Gap 12 BUN 24 H Creatinine 0.9 Creat Clearance w eGFR > 60 POC Glucometer 97 Random Glucose 122 H Calcium 8.7 Total Bilirubin 0.3 AST 14 L D ALT 32 Alkaline Phosphatase 66 Total Protein 6.0 L Albumin 2.9 L Urine Color Urine Appearance Urine pH Ur Specific [place] Urine Protein Urine Glucose (UA) Urine Ketones Urine Blood Urine Nitrite Urine Bilirubin Urine Urobilinogen Ur Leukocyte Esterase RPR Titer 12/19/17 12/19/17 12/19/17 07:30 11:25 16:18 WBC RBC Hgb Hct MCV MCH MCHC RDW Plt Count MPV Sodium Potassium Chloride Carbon Dioxide Anion Gap BUN Creatinine Creat Clearance w eGFR POC Glucometer 117 Random Glucose Calcium Total Bilirubin AST ALT Alkaline Phosphatase Total Protein Albumin Urine Color Ltyellow Urine Appearance Clear Urine pH 5.0 Ur Specific [place] 1.015 Urine Protein Negative Urine Glucose (UA) Negative Urine Ketones Negative Urine Blood Negative Urine Nitrite Negative Urine Bilirubin Negative Urine Urobilinogen Negative Ur Leukocyte Esterase Negative RPR Titer Nonreactive 12/20/17 12/20/17 12/21/17 05:46 16:23 05:09 WBC RBC Hgb Hct MCV MCH MCHC RDW Plt Count MPV Sodium Potassium Chloride Carbon Dioxide Anion Gap BUN Creatinine Creat Clearance w eGFR POC Glucometer 94 113 92 Random Glucose Calcium Total Bilirubin AST ALT Alkaline Phosphatase Total Protein Albumin Urine Color Urine Appearance Urine pH Ur Specific [place] Urine Protein Urine Glucose (UA) Urine Ketones Urine Blood Urine Nitrite Urine Bilirubin Urine Urobilinogen Ur Leukocyte Esterase RPR Titer Assessment: 12/21/17 11:23 WITHDRAWAL SX Plan: CONTINUE DETOX IMODIUM PRN. CHANGE TO LOMOTIL IF NOT EFFECTIVE.
[2017-12-21] MEDS ORDERED: chlordiazePOXIDE 5 MG CAPSULE PO ONE (11:38)
[2017-12-21] MEDS ORDERED: ASPIRIN 81 MG CHEWABLE TABLETS PO ONE (11:38)
[2017-12-21] MEDS ORDERED: BUDESONIDE/FORMETEROL FUMARATE 80/4.5 mcg INHALER IH ONE (11:40)
[2017-12-21] MEDS ORDERED: POTASSIUM CHLORIDE TABS 20 MEQ TABLET.ER (FP) PO ONE (11:41)
[2017-12-21] MEDS ORDERED: DOXYCYCLINE HYCLATE 100 MG TABLET PO ONE (11:42)
[2017-12-21] MEDS ORDERED: LISINOPRIL 10 MG TABLET (FP) PO ONE (11:44)
--- NOTE | 2017-12-21 15:53 | PN ---
Psychiatric Progress Note Vital Signs: Vital Signs Period Temp Pulse Resp BP Sys/Kumari Pulse Ox Last 24 Hr 97.0 F-97.4 F 64-93 17-20 106-136/66-83 Date of Session: 12/21/17 Chief Complaint:: "I can't sleep" HPI: Patient admitted to for alcohol and cannabis dependence. ROS: Diabetes mellitus,bronchial asthma,hypertension and a history of herniorraphy (2016) Current Medications: Active Medications Generic Name Dose Route Start Last Admin Trade Name Freq PRN Reason Stop Dose Admin Acetaminophen 650 mg 12/19/17 00:14 Tylenol - PO Q4H PRN FEVER Al Hydroxide/Mg Hydroxide 30 ml 12/19/17 00:14 Mylanta Oral Suspension - PO Q6H PRN DYSPEPSIA Albuterol Sulfate 2 puff 12/19/17 00:16 12/19/17 10:49 Ventolin Hfa Inhaler - IH 2 puff Q4H PRN Administration ASTHMA Aspirin 81 mg 12/19/17 16:00 12/21/17 11:12 Asa - PO Not Given DAILY [facility] Atorvastatin Calcium 40 mg 12/20/17 10:00 12/21/17 11:12 Lipitor - PO Not Given DAILY [facility] Budesonide/Formoterol Fumarate 2 puff 12/19/17 22:00 12/21/17 11:13 Symbicort 160/4.5mcg - IH Not Given BID YESSICA Chlordiazepoxide HCl 15 mg 12/21/17 05:00 12/21/17 11:13 Librium - PO 12/21/17 23:01 Not Given [id number] YESSICA Chlordiazepoxide HCl 25 mg 12/19/17 00:14 12/19/17 02:59 Librium - PO 12/22/17 00:13 25 mg Q4H PRN Administration WITHDRAWAL(CONT SUBST) Chlordiazepoxide HCl 10 mg 12/22/17 05:00 Librium - PO 12/22/17 23:01 [id number] YESSICA Citalopram Hydrobromide 20 mg 12/20/17 10:00 12/20/17 10:41 Celexa - PO Not Given DAILY [facility] Doxycycline Hyclate 100 mg 12/19/17 22:00 12/20/17 22:04 Vibratab - PO 08/24/18 22:01 100 mg BID YESSICA Administration Eucalyptus/Menthol/Phenol/Sorbitol 1 each 12/19/17 00:14 Cepastat Lozenge - MM Q4H PRN SORE THROAT Gabapentin 300 mg 12/19/17 22:00 12/21/17 15:42 Neurontin - PO 300 mg TID YESSICA Administration Guaifenesin 10 ml 12/19/17 00:14 Robitussin Dm - PO Q6H PRN COUGH Hydroxyzine Pamoate 50 mg 12/19/17 00:14 12/19/17 02:59 Vistaril - PO 50 mg Q4H PRN Administration AGITATION Ibuprofen 400 mg 12/19/17 00:14 12/20/17 17:43 Motrin - PO 400 mg Q6H PRN Administration PAIN LEVEL 4-6 Lisinopril 10 mg 12/20/17 10:00 12/20/17 10:41 Prinivil PO Not Given DAILY [facility] Loperamide HCl 4 mg 12/19/17 00:14 Imodium - PO Q6H PRN DIARRHEA Magnesium Citrate 300 ml 12/19/17 00:14 Citroma - PO Q48H PRN CONSTIPATION Magnesium Hydroxide 30 ml 12/19/17 00:14 Milk Of Magnesia - PO DAILY PRN CONSTIPATION Melatonin 5 mg 12/19/17 22:00 Melatonin PO HS PRN INSOMNIA Metformin HCl 500 mg 12/19/17 07:00 12/21/17 07:46 Glucophage - PO 500 mg BID@0700,1630 [facility] Administration Montelukast Sodium 10 mg 12/19/17 22:00 12/20/17 22:04 Singulair - PO 10 mg HS [facility] Administration Nicotine 14 mg 12/19/17 10:00 12/21/17 11:12 Nicoderm Patch - TD Not Given DAILY [facility] Nicotine Polacrilex 2 mg 12/19/17 00:14 Nicorette Gum - BC Q2H PRN NICOTINE REPLACEMENT RX Ondansetron HCl 4 mg 12/19/17 13:41 Zofran Odt - SL Q8H PRN NAUSEA AND/OR VOMITING Potassium Chloride 20 meq 12/19/17 18:00 12/21/17 11:12 K-Dur - PO Not Given BID@1000,1800 [facility] Multivit/Folic Acid/Iron 1 tab 12/19/17 10:00 12/20/17 10:41 Vitamins (Sjr) - PO Not Given DAILY YESSICA Pseudoephedrine/Triprolidine 1 combo 12/19/17 00:14 Actifed - PO TID PRN NASAL CONGESTION Quetiapine Fumarate 200 mg 12/20/17 22:00 12/20/17 22:04 Seroquel - PO 200 mg HS YESSICA Administration Thiamine HCl 100 mg 12/19/17 22:00 12/20/17 22:42 Vitamin B1 - PO Not Given HS YESSICA Trazodone HCl 100 mg 12/19/17 22:00 12/20/17 22:04 Desyrel - PO 100 mg HS YESSICA Administration Medication(s) Change(s): Yes. Will increase trazodone to 150mg qhs. Current Side Effect: No Lab tests ordered: No Lab tests reviewed: Yes Provider note:: Patient spoke to patient concerning psychiatric follow up. Patient reports poor sleep last night. Pt. also reports increased sadness after being informed this morning that his 7 year old grandson yesterday in a MVA. Although sad, patient remains motivated to complete detox and rehab. Pt. given positive reassurance. Pt. requesting an increase in trazodone. Chart reviewed and Dr. Block note read and appreciated. Patient is currently prescribed trazodone 100mg. Will increase trazodone to 150mg. Pt. satisified and receptive to feedback. Will continue to monitor. Total face to face time:: 25 Mental Status Exam - Mental Status Exam Alert and Oriented to: Time, Place, Person Cognitive Function: Good Patient Appearance: Well Groomed Mood: Sad, Euthymic Affect: Mood Congruent Patient Behavior: Appropriate, Cooperative Speech Pattern: Appropriate Voice Loudness: Moderately Soft/Quiet Thought Process: Intact, Goal Oriented Thought Disorder: Not Present Hallucinations: Denies Suicidal Ideation: Denies Homicidal Ideation: Denies Insight/Judgement: Poor Sleep: Poorly Appetite: Fair Muscle strength/Tone: Normal Gait/Station: Other (Patient ambulates with a cane.) Psychiatric Treatment Plan - Problem List (1) Alcohol dependence with withdrawal, uncomplicated Current Visit: Yes (2) Cannabis dependence Current Visit: Yes (3) Drug-induced mood disorder Current Visit: Yes (4) Insomnia Current Visit: Yes Qualifiers: Insomnia type: unspecified Qualified Code(s): G47.00 - Insomnia, unspecified (5) Nicotine dependence, uncomplicated Current Visit: Yes Qualifiers: Nicotine product type: cigarettes Qualified Code(s): F17.210 - Nicotine dependence, cigarettes, uncomplicated (6) Bipolar disorder Current Visit: Yes Qualifiers: Active/Remission status: remission status unspecified Qualified Code(s): F31.9 - Bipolar disorder, unspecified Comment: Self-report.
--- NOTE | 2017-12-21 16:08 | EKG ---
Test Reason : Blood Pressure : / mmHG Vent. Rate : 079 BPM Atrial Rate : 079 BPM P-R Int : 130 ms QRS Dur : 102 ms QT Int : 368 ms P-R-T Axes : 059 034 053 degrees QTc Int : 421 ms NORMAL SINUS RHYTHM NORMAL ECG WHEN COMPARED WITH ECG OF 15-AUG-2017 01:22, NO SIGNIFICANT CHANGE WAS FOUND Confirmed by Kenia Franco ([id number]) on 12/21/2017 4:07:56 PM Referred By: Arnold Alarcon Confirmed By:Kenia Franco
[2017-12-21] MEDS ORDERED: traZODone HCL 50 MG TABLET (FP) PO SCH (22:00)
[2017-12-21] MEDS: THIAMINE HCL 100 MG TABLET (FP) PO SCH (22:03)
[2017-12-21] MEDS: MONTELUKAST NA 10 MG TABLET PO SCH (22:04)
[2017-12-21] MEDS: QUEtiapine FUMARATE 200 MG TABLET PO SCH (22:04)
[2017-12-22] MEDS: GABAPENTIN 300 MG CAPSULE (FP) PO SCH (05:46)
[2017-12-22] MEDS: chlordiazePOXIDE HCL 10 MG CAPSULE PO SCH ×2 (05:46→10:04)
[2017-12-22] MEDS: metFORMIN HCL 500 MG TABLET (FP) PO SCH (07:48)
[2017-12-22 09:10] VITALS: BP 134/84; PULSE 99; TEMP 96.9
[2017-12-22] MEDS: POTASSIUM CHLORIDE TABS 20 MEQ TABLET.ER (FP) PO SCH (10:04)
[2017-12-22] MEDS: BUDESONIDE/FORMETEROL FUMARATE 160/4.5 mcg INHALER IH SCH (10:05)
[2017-12-22] MEDS: ATORVASTATIN CA 40 MG TABLET (FP) PO SCH (10:05)
[2017-12-22] MEDS: CITALOPRAM HYDROBROMIDE 20 MG TABLET (FP) PO SCH (10:05)
[2017-12-22] MEDS: LISINOPRIL 10 MG TABLET (FP) PO SCH (10:05)
[2017-12-22] MEDS: NICOTINE 14 MG/24 HOURS TOPICAL PATCH TD SCH (10:05)
[2017-12-22] MEDS: DOXYCYCLINE HYCLATE 100 MG TABLET PO SCH (10:05)
[2017-12-22] MEDS: PRENATAL VITAMINS W/ FOLIC ACID TABLET (FP) PO SCH (10:05)
[2017-12-22] MEDS: ASPIRIN 81 MG CHEWABLE TABLETS PO SCH (10:05)
--- NOTE | 2017-12-22 11:09 | PN ---
[facility] Progress Note (SOAP) Subjective: DETOX COMPLETED. NAD. ALERT OX 3. PT REPORTS HE HAS A PMD AT [facility] AND ALSO HAS OWN MEDS. Objective: 12/22/17 11:04 Vital Signs 12/22/17 12/22/17 12/22/17 03:30 06:15 09:09 Temperature 97 F L 96.9 F L Pulse Rate 76 99 H Respiratory 18 18 18 Rate Blood Pressure 106/71 134/84 Laboratory Tests 12/19/17 12/19/17 12/19/17 06:06 07:30 07:30 WBC 11.1 H RBC 4.20 Hgb 12.9 Hct 38.5 MCV 91.7 MCH 30.7 MCHC 33.5 RDW 14.8 D Plt Count 219 MPV 9.2 Sodium 141 Potassium 3.4 L Chloride 104 Carbon Dioxide 25 D Anion Gap 12 BUN 24 H Creatinine 0.9 Creat Clearance w eGFR > 60 POC Glucometer 97 Random Glucose 122 H Calcium 8.7 Total Bilirubin 0.3 AST 14 L D ALT 32 Alkaline Phosphatase 66 Total Protein 6.0 L Albumin 2.9 L Urine Color Urine Appearance Urine pH Ur Specific [place] Urine Protein Urine Glucose (UA) Urine Ketones Urine Blood Urine Nitrite Urine Bilirubin Urine Urobilinogen Ur Leukocyte Esterase RPR Titer 12/19/17 12/19/17 12/19/17 07:30 11:25 16:18 WBC RBC Hgb Hct MCV MCH MCHC RDW Plt Count MPV Sodium Potassium Chloride Carbon Dioxide Anion Gap BUN Creatinine Creat Clearance w eGFR POC Glucometer 117 Random Glucose Calcium Total Bilirubin AST ALT Alkaline Phosphatase Total Protein Albumin Urine Color Ltyellow Urine Appearance Clear Urine pH 5.0 Ur Specific [place] 1.015 Urine Protein Negative Urine Glucose (UA) Negative Urine Ketones Negative Urine Blood Negative Urine Nitrite Negative Urine Bilirubin Negative Urine Urobilinogen Negative Ur Leukocyte Esterase Negative RPR Titer Nonreactive 12/20/17 12/20/17 12/21/17 05:46 16:23 05:09 WBC RBC Hgb Hct MCV MCH MCHC RDW Plt Count MPV Sodium Potassium Chloride Carbon Dioxide Anion Gap BUN Creatinine Creat Clearance w eGFR POC Glucometer 94 113 92 Random Glucose Calcium Total Bilirubin AST ALT Alkaline Phosphatase Total Protein Albumin Urine Color Urine Appearance Urine pH Ur Specific [place] Urine Protein Urine Glucose (UA) Urine Ketones Urine Blood Urine Nitrite Urine Bilirubin Urine Urobilinogen Ur Leukocyte Esterase RPR Titer 12/21/17 12/22/17 16:15 05:47 WBC RBC Hgb Hct MCV MCH MCHC RDW Plt Count MPV Sodium Potassium Chloride Carbon Dioxide Anion Gap BUN Creatinine Creat Clearance w eGFR POC Glucometer 176 87 Random Glucose Calcium Total Bilirubin AST ALT Alkaline Phosphatase Total Protein Albumin Urine Color Urine Appearance Urine pH Ur Specific [place] Urine Protein Urine Glucose (UA) Urine Ketones Urine Blood Urine Nitrite Urine Bilirubin Urine Urobilinogen Ur Leukocyte Esterase RPR Titer Assessment: 12/22/17 11:05 MEDICALLY STABLE Plan: D/C PT TODAY.
--- NOTE | 2017-12-22 11:11 | DS ---
[facility] Detox Discharge Summary Admission Date: 12/19/17 - History Present History: Alcohol Dependence, Cocaine Dependence Additional Comments: DETOX COMPLETED. Pertinent Past History: PLEASE SEE DX BELOW - Physical Exam Results Vital Signs: Vital Signs Temperature 96.9 F L 12/22/17 09:09 Pulse Rate 99 H 12/22/17 09:09 Respiratory Rate 18 12/22/17 09:09 Blood Pressure 134/84 12/22/17 09:09 O2 Sat by Pulse Oximetry (%) - Treatment Hospital Course: Detox Protocol Followed, Detoxed Safely, Responded well, Discharged Condition Good, Rehab Referral Accepted Patient has Accepted a Rehab Referral to: [facility] - Medication Discharge Medications: Ambulatory Orders Albuterol Sulfate Inhaler - [Ventolin HFA Inhaler -] 2 inh PO Q4H PRN 03/13/15 metFORMIN HCL [Metformin HCl] 500 mg PO BID 08/14/17 traZODone HCL [Desyrel -] 100 mg PO HS 08/15/17 Aspirin 81 mg PO DAILY 12/19/17 Atorvastatin Ca [Lipitor] 40 mg PO DAILY 12/19/17 Budesonide/Formeterol Fumarate [SYMBICORT 160/4.5mcg -] 2 inh PO BID 12/19/17 Doxycycline Hyclate 100 mg PO BID 12/19/17 Folic Acid 1 mg PO DAILY 12/19/17 Gabapentin 300 mg PO TID 12/19/17 Hydrochlorothiazide 25 mg PO DAILY 12/19/17 Lisinopril 20 mg PO DAILY 12/19/17 Mirtazapine 30 mg PO HS 12/19/17 Montelukast Na [Singulair -] 10 mg PO HS 12/19/17 Prednisone 35 mg PO 12/19/17 Citalopram Hydrobromide [Celexa -] 20 mg PO DAILY #30 tablet 12/20/17 Quetiapine Fumarate [Seroquel -] 200 mg PO HS #30 tab 12/20/17 traZODone HCL [Trazodone HCl] 100 mg PO HS #30 tablet 12/20/17 - Diagnosis (1) Alcohol dependence with withdrawal, uncomplicated Status: Acute (2) Cannabis dependence Status: Acute (3) Nicotine dependence, uncomplicated Status: Acute Qualifiers: Nicotine product type: cigarettes Qualified Code(s): F17.210 - Nicotine dependence, cigarettes, uncomplicated (4) Alcohol withdrawal seizure Status: Suspected Qualifiers: Complication of substance-induced condition: uncomplicated Qualified Code(s ): F10.230 - Alcohol dependence with withdrawal, uncomplicated (5) Asthma Status: Chronic Qualifiers: Asthma severity: mild Asthma persistence: intermittent Asthma complication type: uncomplicated Qualified Code(s): J45.20 - Mild intermittent asthma, uncomplicated (6) COPD (chronic obstructive pulmonary disease) Status: Chronic Qualifiers: COPD type: unspecified COPD Qualified Code(s): J44.9 - Chronic obstructive pulmonary disease, unspecified (7) Diabetes mellitus type 2 in obese Status: Chronic (8) Hypertension Status: Chronic Qualifiers: Hypertension type: unspecified Qualified Code(s): I10 - Essential (primary ) hypertension (9) Cocaine abuse, uncomplicated Status: Acute (10) Drug-induced mood disorder Status: Acute (11) Insomnia Status: Acute Qualifiers: Insomnia type: unspecified Qualified Code(s): G47.00 - Insomnia, unspecified (12) Bipolar disorder Status: Chronic Qualifiers: Active/Remission status: remission status unspecified Qualified Code(s): F31.9 - Bipolar disorder, unspecified - AMA Did Patient Leave Against Medical Advice: No
== END 2017-12-22 10:20 | disposition home or self-care (01) | DRG 774 ==
LOC: YASAS 20:43 → Y3N 12-19 00:14
PROVIDERS: ADMIT Surgery; ATTEND Surgery
PROC: HZ2ZZZZ Detoxification Services for Substance Abuse Treatment (ICD-10-PCS; principal; 2017-12-19)
DX: F10.230 Alcohol dependence with withdrawal, uncomplicated (principal); F12.20 Cannabis dependence, uncomplicated; F14.10 Cocaine abuse, uncomplicated; F17.210 Nicotine dependence, cigarettes, uncomplicated; F19.24 Other psychoactive substance dependence with psychoactive substance-induced mood disorder; F31.9 Bipolar disorder, unspecified; I10 Essential (primary) hypertension; J45.20 Mild intermittent asthma, uncomplicated; J44.9 Chronic obstructive pulmonary disease, unspecified; E11.9 Type 2 diabetes mellitus without complications; G47.00 Insomnia, unspecified; E87.6 Hypokalemia; Z79.84 Long term (current) use of oral hypoglycemic drugs; Z86.69 Personal history of other diseases of the nervous system and sense organs; Z91.013 Allergy to seafood; Z88.0 Allergy status to penicillin; Z91.5 Personal history of self-harm
CPT/HCPCS: 36415; 80053; 81003; 82962; 85027; 86593; 93005; 93010

== ENCOUNTER 2023-04-03 11:39 | Inpatient (IN) | payer OTHER ==
[2023-04-03 12:12] VITALS: BMI 20.9
[2023-04-03] MEDS ORDERED: BENZONATATE 200 MG CAPSULE PO PRN (12:43)
[2023-04-03] MEDS ORDERED: MAG HYDROX/AL HYDROX/SIMETH 30 ML UNIT-DOSE CUP PO PRN (12:43)
[2023-04-03] MEDS ORDERED: guaiFENesin 600 MG TABLET.ER (FP) PO PRN (12:43)
[2023-04-03] MEDS ORDERED: MAGNESIUM HYDROX 2400MG/30ML ORAL SUSPENSION 30 ML CUP PO PRN (12:43)
[2023-04-03] MEDS ORDERED: IBUPROFEN 400 MG TABLET (FP) PO PRN (12:43)
[2023-04-03] MEDS ORDERED: ONDANSETRON *ODT* 4 MG TABLET SL PRN (12:43)
[2023-04-03] MEDS ORDERED: BISMUTH SUBSALICYLATE 262 MG/15 ML BTL PO PRN (12:43)
[2023-04-03] MEDS ORDERED: NALOXONE HCL (KLOXXADO) 8 MG SPRAY NS PRN (12:43)
[2023-04-03] MEDS ORDERED: DICYCLOMINE HCL 10 MG CAPSULE PO PRN (12:43)
[2023-04-03] MEDS ORDERED: ACETAMINOPHEN 325 MG TABLET (FP) PO PRN (12:43)
[2023-04-03] MEDS ORDERED: IBUPROFEN 600 MG TABLET (FP) PO PRN (12:43)
[2023-04-03] MEDS ORDERED: chlordiazePOXIDE HCL 25 MG CAPSULE PO PRN (12:43)
[2023-04-03] MEDS ORDERED: BENZOCAINE/MENTHOL (CHLORASEPTIC ) LOZENGE MM PRN (12:43)
[2023-04-03] MEDS ORDERED: NALOXONE HCL 0.4 MG/ML VIAL IM PRN (12:43)
[2023-04-03] MEDS ORDERED: POLYETHYLENE GLYCOL (HEALTHYLAX) 3350 17 GM PACKET PO PRN (12:43)
[2023-04-03] MEDS ORDERED: LOPERAMIDE HCL 2 MG CAPSULE PO PRN (12:43)
[2023-04-03] MEDS ORDERED: ALBUTEROL SO4 HFA INHALER IH PRN (12:45)
[2023-04-03] MEDS ORDERED: chlordiazePOXIDE HCL 25 MG CAPSULE ONE (13:06)
[2023-04-03] MEDS ORDERED: PRENATAL VITAMINS W/ FOLIC ACID TABLET (FP) PO ONE (13:06)
[2023-04-03] MEDS: PRENATAL VITAMINS W/ FOLIC ACID TABLET (FP) PO SCH (13:09)
[2023-04-03 15:46] LABS: HEMATOCRIT 42.3 % (35.4-49); HEMOGLOBIN 13.9 GM/dL (11.7-16.9); MCH 31.1 pg (25.7-33.7); MCHC 32.8 g/dl (32.0-35.9); MEAN CELL VOLUME 94.9 fl (80-96); MEAN PLT VOLUME 8.9 fl (7.5-11.1); PLATELET COUNT 225 10^3/uL (134-434); RBC 4.46 M/mm3 (4.00-5.60); RDW 14.3 % (11.9-15.9); WHITE BLOOD COUNT 6.8 K/mm3 (4.0-10.0)
[2023-04-03 15:47] LABS: CHLORIDE 106 mmol/L (98-107); POTASSIUM 4.2 mmol/L (3.5-5.1); SODIUM 141 mmol/L (136-145)
[2023-04-03 15:54] LABS: ALBUMIN 3.4 g/dl (3.4-5.0); ANION GAP 8 mmol/L (4-13); BLOOD UREA NITROGEN 11.9 mg/dL (7-18); CALCIUM 8.7 mg/dL (8.5-10.1); CO2 27 mmol/L (21-32); GLUCOSE,RANDOM 135 mg/dL (74-106)
[2023-04-03 15:57] LABS: CREATININE 0.8 mg/dL (0.55-1.3); SGOT/AST 15 U/L (15-37); SGPT/ALT 15 U/L (13-61)
[2023-04-03 15:58] LABS: BILIRUBIN,TOTAL 0.4 mg/dL (0.2-1)
[2023-04-03 15:59] LABS: ALK PHOS 57 U/L (45-117)
[2023-04-03 16:46] LABS: HIV INTERPRETATION NEGATIVE (NEGATIVE)
[2023-04-03] MEDS: metFORMIN HCL 500 MG TABLET (FP) PO SCH (16:58)
[2023-04-03] MEDS: chlordiazePOXIDE HCL 25 MG CAPSULE PO SCH ×2 (16:59→22:28)
[2023-04-03] MEDS: MELATONIN 5 MG TABLETS PO SCH (22:25)
[2023-04-03] MEDS: MONTELUKAST NA 10 MG TABLET PO SCH (22:26)
[2023-04-03] MEDS: THIAMINE HCL 100 MG TABLET (FP) PO SCH (22:26)
[2023-04-03] MEDS: METHOCARBAMOL 500 MG TABLET PO PRN (22:28)
[2023-04-03] MEDS: hydrOXYzine PAMOATE 25 MG CAPSULE (FP) PO PRN (22:28)
[2023-04-03] MEDS: BUDESONIDE/FORMETEROL FUMARATE 160/4.5 mcg INHALER IH SCH (22:31)
[2023-04-04] MEDS: chlordiazePOXIDE HCL 25 MG CAPSULE PO SCH (05:46)
[2023-04-04] MEDS: metFORMIN HCL 500 MG TABLET (FP) PO SCH ×2 (07:18→17:12)
[2023-04-04] MEDS ORDERED: LORazepam 1 MG TABLET PO PRN (08:43)
[2023-04-04] MEDS: ASPIRIN 81 MG CHEWABLE TABLETS PO SCH (10:27)
[2023-04-04] MEDS: LISINOPRIL 20 MG TABLET PO SCH (10:27)
[2023-04-04] MEDS: ATORVASTATIN CA 40 MG TABLET (FP) PO SCH (10:27)
[2023-04-04] MEDS: PRENATAL VITAMINS W/ FOLIC ACID TABLET (FP) PO SCH (10:27)
[2023-04-04] MEDS: BUDESONIDE/FORMETEROL FUMARATE 160/4.5 mcg INHALER IH SCH ×2 (10:28→22:14)
[2023-04-04] MEDS: LORazepam 2 MG TABLET PO SCH ×3 (10:29→22:14)
[2023-04-04] MEDS ORDERED: PNEUMOC 20-VAL CONJ-DIP CRM/PF 0.5 ML SYRINGE IM ONE (12:00)
[2023-04-04] MEDS ORDERED: FLU VACCINE (FLULAVAL) PF 60 MCG/0.5 ML SYRINGE 2023-2024 IM ONE (12:00)
[2023-04-04] MEDS: DOCUSATE SODIUM 100 MG CAPSULE (FP) PO SCH ×2 (14:03→22:14)
[2023-04-04] MEDS ORDERED: LACTULOSE 20 GM/30 ML UDC (FOR ORAL USE ONLY) PO ONE (15:28)
[2023-04-04] MEDS: LACTULOSE 20 GM/30 ML UDC (FOR ORAL USE ONLY) PO SCH ×2 (17:13→22:14)
[2023-04-04] MEDS ORDERED: SENNOSIDES 8.6MG TABLET (FP) PO SCH (22:00)
[2023-04-04] MEDS ORDERED: QUEtiapine FUMARATE 100 MG TABLET (FP) PO SCH (22:00)
[2023-04-04] MEDS: MONTELUKAST NA 10 MG TABLET PO SCH (22:13)
[2023-04-04] MEDS: MELATONIN 5 MG TABLETS PO SCH (22:13)
[2023-04-04] MEDS: THIAMINE HCL 100 MG TABLET (FP) PO SCH (22:14)
[2023-04-05] MEDS ORDERED: chlordiazePOXIDE HCL 25 MG CAPSULE PO SCH (05:00)
[2023-04-05] MEDS: DOCUSATE SODIUM 100 MG CAPSULE (FP) PO SCH (05:56)
[2023-04-05] MEDS: LORazepam 2 MG TABLET PO SCH ×2 (05:56→10:10)
[2023-04-05] MEDS ORDERED: INSULIN ASPART SLIDING SCALE (NOVOLOG) 1 VIAL SQ SCH (07:00)
[2023-04-05] MEDS: metFORMIN HCL 500 MG TABLET (FP) PO SCH (07:53)
[2023-04-05 09:32] VITALS: BP 112/60; PULSE 76; RESP 16; TEMP 98.4
[2023-04-05] MEDS: METHOCARBAMOL 500 MG TABLET PO PRN (10:07)
[2023-04-05] MEDS: PRENATAL VITAMINS W/ FOLIC ACID TABLET (FP) PO SCH (10:07)
[2023-04-05] MEDS: hydrOXYzine PAMOATE 25 MG CAPSULE (FP) PO PRN (10:07)
[2023-04-05] MEDS: ASPIRIN 81 MG CHEWABLE TABLETS PO SCH (10:07)
[2023-04-05] MEDS: LISINOPRIL 20 MG TABLET PO SCH (10:07)
[2023-04-05] MEDS: ATORVASTATIN CA 40 MG TABLET (FP) PO SCH (10:08)
[2023-04-05] MEDS: BUDESONIDE/FORMETEROL FUMARATE 160/4.5 mcg INHALER IH SCH (10:08)
[2023-04-05] MEDS: LACTULOSE 20 GM/30 ML UDC (FOR ORAL USE ONLY) PO SCH (10:10)
[2023-04-06] MEDS ORDERED: chlordiazePOXIDE HCL 10 MG CAPSULE PO PRN
[2023-04-06] MEDS ORDERED: LORazepam 1 MG TABLET PO SCH (05:00)
[2023-04-06] MEDS ORDERED: chlordiazePOXIDE HCL 10 MG CAPSULE PO SCH (05:00)
[2023-04-07] MEDS ORDERED: LORazepam 0.5 MG TABLET PO PRN
[2023-04-07] MEDS ORDERED: LORazepam 0.5 MG TABLET PO SCH (05:00)
[2023-04-07] MEDS ORDERED: chlordiazePOXIDE HCL 10 MG CAPSULE PO SCH (05:00)
[2023-04-08] MEDS ORDERED: LORazepam 0.5 MG TABLET PO ONE (05:00)
[2023-04-08] MEDS ORDERED: chlordiazePOXIDE HCL 10 MG CAPSULE PO ONE (05:00)
== END 2023-04-05 10:24 | disposition left against medical advice (07) | DRG 770 ==
LOC: YASAS 11:39 → Y6N 13:34
PROVIDERS: ADMIT Allergy & Immunology; ATTEND Surgery
PROC: HZ2ZZZZ Detoxification Services for Substance Abuse Treatment (ICD-10-PCS; principal; 2023-04-03)
DX: F10.230 Alcohol dependence with withdrawal, uncomplicated (principal); F13.230 Sedative, hypnotic or anxiolytic dependence with withdrawal, uncomplicated; F14.20 Cocaine dependence, uncomplicated; F12.20 Cannabis dependence, uncomplicated; F17.210 Nicotine dependence, cigarettes, uncomplicated; F19.282 Other psychoactive substance dependence with psychoactive substance-induced sleep disorder; F19.24 Other psychoactive substance dependence with psychoactive substance-induced mood disorder; F31.9 Bipolar disorder, unspecified; I10 Essential (primary) hypertension; J45.20 Mild intermittent asthma, uncomplicated; E11.65 Type 2 diabetes mellitus with hyperglycemia; Z79.4 Long term (current) use of insulin; Z88.0 Allergy status to penicillin
CPT/HCPCS: 36415; 80053; 80307; 82140; 82962; 85027; 86780; 87389; 87635; 87811; 90677; 90686; 93005; 93010; G0008; Q0162